=== PATIENT | male | born 1970 | race Caucasian/White ===

== ENCOUNTER 2023-05-07 17:14 | Observation (INO) ==
[2023-05-07 18:11] LABS: Hemoglobin 14.5 g/dl (14.0-18.0); Mean Corpuscular Hemoglobin 29.1 pg (25.0-34.0); Mean Corpuscular Volume 88.2 fL (80.0-100.0); Mean Platelet Volume 9.5 fL (9.4-12.4); Platelet Count 312 K/uL (130-400); RDW Coefficient of Variation 12.8 % (11.5-14.5); RDW Standard Deviation 41.5 fL (36.4-46.3); Red Blood Count 4.99 M/uL (4.70-6.10); White Blood Count 7.64 K/ul (4.8-10.8)
[2023-05-07 18:30] LABS: Albumin Globulin Ratio 1.6 (0.9-2); Albumin Level 4.5 gm/dl (3.4-5.0); BUN Creatinine Ratio 13.7 (10-20); Bilirubin,Total 0.6 mg/dl (0.2-1.0); C Reactive Protein 0.79 mg/dl (0-0.5); Calcium 9.6 mg/dl (8.6-10.3); Creatinine Clr Calc Pharmacy 106.6 ml/min; Est GFR (African American) 96.8 ml/min; Est GFR (Non-African American) 83.5 ml/min; Globulin 2.9 gm/dl (2.5-4.0); Potassium 4.4 mmol/L (3.5-5.1); Total Protein 7.4 gm/dl (6.0-8.3)
[2023-05-07 18:42] LABS: INR 0.9 (0.9-1.1); Partial Thromboplastin Ratio 0.8; Partial Thromboplastin Time 23.8 Seconds (21.0-31.0); Prothrombin Time 10.2 Seconds (9.0-12.0)
[2023-05-07 18:59] LABS: Troponin I High Sensitivity 58.8 pg/ml (0-20)
[2023-05-07] MEDS ORDERED: OPTIRAY 320 125ml IV ONE (19:27)
[2023-05-07 19:50] LABS: Lyme Ab IgG w/WB Rflx Negative (Negative); Lyme Ab IgM w/WB Rflx Negative (Negative)
--- NOTE | 2023-05-07 19:59 | CT Scan Report ---
Exam(s): CTA CHEST IV Amt: 118ml optiray 320 EXAM: CT Angiography Chest With Intravenous Contrast CLINICAL HISTORY: Reason for exam: +Trop, recent travel. TECHNIQUE: Axial computed tomographic angiography images of the chest with intravenous contrast. CTDI is 14.84 mGy and DLP is 1926.31 mGy-cm. Automated exposure control was utilized for the study. A dose lowering technique was utilized adhering to the principles of ALARA. MIP reconstructed images were created and reviewed. COMPARISON: None FINDINGS: Pulmonary arteries: Unremarkable. No pulmonary embolus identified. Aorta: No acute findings. No aortic aneurysm or dissection. Lungs: Unremarkable. No mass. No consolidation. Pleural space: Unremarkable. No significant effusion. No pneumothorax. Heart: Unremarkable. No cardiomegaly. No significant pericardial effusion. No evidence of RV dysfunction. Bones/joints: Mild degenerative changes of the spine. No acute fracture. No dislocation. Soft tissues: Unremarkable. Lymph nodes: Unremarkable. No enlarged lymph nodes. IMPRESSION: 1. No pulmonary embolus identified. 2. No aortic aneurysm or dissection. 3. No acute pulmonary parenchymal abnormality identified. Electronically signed by: Yari Ruffin M.D. 05/07/23 19:58 PM
--- NOTE | 2023-05-07 20:02 | CT Scan Report ---
Exam(s): CTA ABDOMEN + PELVIS With Contrast IV Amt: 118ml optiray 320 EXAM: CT Angiography Abdomen and Pelvis With Intravenous Contrast CLINICAL HISTORY: Reason for exam: blood in stool, elevated trop. TECHNIQUE: Axial computed tomographic angiography images of the abdomen and pelvis with intravenous contrast. CTDI is 27.6 mGy and DLP is 1926.31 mGy-cm. Automated exposure control was utilized for the study. A dose lowering technique was utilized adhering to the principles of ALARA. MIP reconstructed images were created and reviewed. CONTRAST: Patient received 118ml optiray 320 of IV contrast COMPARISON: CT abdomen/pelvis on 09/03/2016 FINDINGS: VASCULATURE: Aorta: No acute findings. No abdominal aortic aneurysm or dissection. Celiac trunk and mesenteric arteries: No acute findings. No occlusion or significant stenosis. Renal arteries: No acute findings. No occlusion or significant stenosis. Iliac arteries: No acute findings. No occlusion or significant stenosis. Lung bases: Unremarkable. No mass. No consolidation. ABDOMEN: Liver: Hepatic steatosis. Gallbladder and bile ducts: Unremarkable. No calcified stones. No ductal dilation. Pancreas: Unremarkable. No ductal dilation. No mass. Spleen: Unremarkable. No splenomegaly. Adrenals: Unremarkable. No mass. Kidneys and ureters: Small nonobstructing bilateral renal stones. No hydronephrosis or ureteral stone. Stomach and bowel: Diverticulosis without evidence of diverticulitis. Underdistended proximal sigmoid colon and descending colon limits evaluation. No small bowel obstruction. No active GI bleed. PELVIS: Appendix: Normal appendix. Bladder: Unremarkable. No mass. Reproductive: Unremarkable as visualized. ABDOMEN and PELVIS: Intraperitoneal space: Phleboliths in the pelvis. No significant fluid collection. No free air. Bones/joints: Mild degenerative changes of the spine. No acute fracture. No dislocation. Soft tissues: Small fat-containing umbilical hernia. Lymph nodes: Unremarkable. No enlarged lymph nodes. IMPRESSION: 1. No active GI bleed. 2. Small nonobstructing bilateral renal stones. No hydronephrosis or ureteral stone. Electronically signed by: Yari Ruffin M.D. 05/07/23 20:01 PM
--- NOTE | 2023-05-07 22:19 | Emergency Department Note ---
History of Present Illness General Chief complaint: Rectal Pain Stated complaint: RECTAL PAIN,BLOOD STOOL Time Seen by Provider: 05/07/23 17:50 History of Present Illness Maximum Pain Intensity: 2 This is a 52-year-old male presenting to the emergency department for evaluation of perirectal pain and blood in his stool. Patient has had symptoms off and on for 2 or 3 days. There is some pain with wiping, and red blood on the toilet paper and in the toilet. The patient does not endorse any significant abdominal pain. His last colonoscopy was last year, and was reportedly essentially normal. The patient did travel out of the country 2 months ago, but has not had symptoms until this past weekend. No recent antibiotic use. No diarrhea. He does not have a history of inflammatory bowel disease or surgical abdominal history. Patient does not typically take NSAIDs and is not on blood thinners. He rates his discomfort a 2/10. Home Medications Medication Instructions Recorded Confirmed Type ibuprofen 200 mg tablet 400 mg PO DAILY 05/07/23 05/07/23 History aspirin 81 mg chewable tablet 81 mg PO DAILY #30 tabs 05/08/23 Rx Allergies Allergy/AdvReac Type Severity Reaction Status Date / Time No Known Allergies Allergy Unverified 09/02/16 22:36 Past Med/Surg History Medical History No chronic diseases present Surgical History No significant past surgical history Family History Father Myocardial infarction Social History Smoking Status: Never smoker Hx Alcohol Use: No Hx Substance Use: No Preferred Language: Setswana Communication Ability: Effective Packer Operator Automatic Required: No Beliefs That Will Affect Care: None Current Living Situation: Family Other Information That Helps Us Care for You: No Feels Safe at Home: Yes Safety Concerns: Feels Safe At This Time Assistive Devices: None Review of Systems A total of 10 systems reviewed and were otherwise negative Physical Exam Vital Signs Vital Signs - 24 hr 05/07/23 22:30 05/07/23 22:12 05/07/23 23:00 Pulse Rate 72 Pulse Rate [Apical] 67 84 Respiratory Rate 18 16 Blood Pressure [Left Arm] 156/90 H 147/78 H Blood Pressure Mean [Left Arm] 112 101 Pulse Oximetry 96 97 Oxygen Delivery Method Room Air Room Air VITALS: Vitals are noted on the nurse's note and reviewed by myself. Vital signs stable. GENERAL: Well-developed, well-nourished, white male, who is in no acute distress and resting comfortably. Patient is cooperative with the examination. HEAD: Normocephalic atraumatic. NECK: Supple without nuchal rigidity. No lymphadenopathy. No thyromegaly. Cervical spine is nontender. HEART: Regular rate and rhythm without murmurs gallops or rubs. LUNGS: Clear to auscultation bilaterally without wheezes, rales or rhonchi. No retractions or accessory muscle use. ABDOMEN: Positive normal bowel sounds x 4. Soft, nontender, without masses or organomegaly. No guarding or rebound tenderness. : Perirectal space without obvious abscess, fistula, fissure, or hemorrhoid. MUSCULOSKELETAL: No muscle atrophy, erythema, or edema noted. Full range of motion in all extremities. No tenderness to palpation. Normal gait. Strength 5/5 throughout. NEURO: Patient was alert and oriented to person place and time. CN II through XII grossly intact. No focal neurological deficits. Deep tendon reflexes 2+ throughout. SKIN: The skin was without rashes, erythema, edema, or bruising. Capillary ref ill less than 2 seconds. Course Administered Medications Discontinued Medications Sodium Chloride (Nss 1000ml) 1,000 mls @ 100 mls/hr IV .Q10H AMANDA Stop: 05/08/23 21:04 Last Infusion: 05/08/23 09:35 Dose: 0 mls/hr Documented By: Admin: 05/08/23 01:34 Dose: 100 mls/hr Documented By: BROOKE Ioversol (Optiray 320 125ml) 118 ml IV ONCE ONE Stop: 05/07/23 19:28 Last Admin: 05/07/23 19:28 Dose: 118 ml Documented By: DOROTHY Methylcellulose (Methylcellulose Powder 454 Gm Jar) 1 gm PO DAILY AMANDA Stop: 06/07/23 09:14 Last Admin: 05/08/23 09:35 Dose: Not Given Documented By: AMANDEEP Medical Decision Making Differential Diagnosis Differential diagnosis includes, but is not limited to: Myocardial infarction, dysrhythmia, pericarditis, pneumothorax, aortic aneurysm/dissection, DVT/PE, anxiety, GERD, PUD, electrolyte imbalance, thyroid disorder, pneumonia, bronchitis, pancreatitis, and others Laboratory Data 05/07/23 17:50 05/07/23 17:50 Lab Results 05/07/23 05/07/23 05/07/23 Range/Units 17:50 17:50 17:50 WBC 7.64 (4.8-10.8) K/ul RBC 4.99 (4.70-6.10) M/uL Hgb 14.5 (14.0-18.0) g/dl Hct 44.0 (42.0-52.0) % MCV 88.2 (80.0-100.0) fL MCH 29.1 (25.0-34.0) pg MCHC 33.0 (32.0-36.0) g/dL RDW Std Deviation 41.5 (36.4-46.3) fL RDW Coeff of Bunny 12.8 (11.5-14.5) % Plt Count 312 (130-400) K/uL MPV 9.5 (9.4-12.4) fL ESR (0-20) mm/hr PT 10.2 (9.0-12.0) Seconds INR 0.9 (0.9-1.1) APTT 23.8 (21.0-31.0) Seconds PTT Ratio 0.8 Sodium 138 (136-145) mmol/L Potassium 4.4 (3.5-5.1) mmol/L Chloride 106 (98-107) mmol/L Carbon Dioxide 28 (21-32) mmol/L Anion Gap 4 (3-11) BUN 14 (6-23) mg/dl Creatinine 1.02 (0.6-1.4) mg/dl Est Cr Clr Drug Dosing 106.6 ml/min Est GFR ( Amer) 96.8 ml/min Est GFR (Non-Af Amer) 83.5 ml/min BUN/Creatinine Ratio 13.7 (10-20) Glucose 94 (70-99(Fasting)) mg/dl Calcium 9.6 (8.6-10.3) mg/dl Total Bilirubin 0.6 (0.2-1.0) mg/dl AST 25 (13-39) U/L ALT 40 (7-52) U/L Alkaline Phosphatase 80 (34-104) U/L Troponin I High Sens 58.8 H* (0-20) pg/ml C-Reactive Protein 0.79 H (0-0.5) mg/dl Total Protein 7.4 (6.0-8.3) gm/dl Albumin 4.5 (3.4-5.0) gm/dl Globulin 2.9 (2.5-4.0) gm/dl Albumin/Globulin Ratio 1.6 (0.9-2) Lyme Disease IgG Ab (Negative) Lyme Disease IgM Ab (Negative) SARS-CoV-2, RNA, NAAT (NEGATIVE) 05/07/23 05/07/23 05/07/23 Range/Units 17:50 17:50 19:30 WBC (4.8-10.8) K/ul RBC (4.70-6.10) M/uL Hgb (14.0-18.0) g/dl Hct (42.0-52.0) % MCV (80.0-100.0) fL MCH (25.0-34.0) pg MCHC (32.0-36.0) g/dL RDW Std Deviation (36.4-46.3) fL RDW Coeff of Bunny (11.5-14.5) % Plt Count (130-400) K/uL MPV (9.4-12.4) fL ESR 27 H (0-20) mm/hr PT (9.0-12.0) Seconds INR (0.9-1.1) APTT (21.0-31.0) Seconds PTT Ratio Sodium (136-145) mmol/L Potassium (3.5-5.1) mmol/L Chloride (98-107) mmol/L Carbon Dioxide (21-32) mmol/L Anion Gap (3-11) BUN (6-23) mg/dl Creatinine (0.6-1.4) mg/dl Est Cr Clr Drug Dosing ml/min Est GFR ( Amer) ml/min Est GFR (Non-Af Amer) ml/min BUN/Creatinine Ratio (10-20) Glucose (70-99(Fasting)) mg/dl Calcium (8.6-10.3) mg/dl Total Bilirubin (0.2-1.0) mg/dl AST (13-39) U/L ALT (7-52) U/L Alkaline Phosphatase (34-104) U/L Troponin I High Sens (0-20) pg/ml C-Reactive Protein (0-0.5) mg/dl Total Protein (6.0-8.3) gm/dl Albumin (3.4-5.0) gm/dl Globulin (2.5-4.0) gm/dl Albumin/Globulin Ratio (0.9-2) Lyme Disease IgG Ab Negative (Negative) Lyme Disease IgM Ab Negative (Negative) SARS-CoV-2, RNA, NAAT NEGATIVE (NEGATIVE) 05/07/23 Range/Units 20:30 WBC (4.8-10.8) K/ul RBC (4.70-6.10) M/uL Hgb (14.0-18.0) g/dl Hct (42.0-52.0) % MCV (80.0-100.0) fL MCH (25.0-34.0) pg MCHC (32.0-36.0) g/dL RDW Std Deviation (36.4-46.3) fL RDW Coeff of Bunny (11.5-14.5) % Plt Count (130-400) K/uL MPV (9.4-12.4) fL ESR (0-20) mm/hr PT (9.0-12.0) Seconds INR (0.9-1.1) APTT (21.0-31.0) Seconds PTT Ratio Sodium (136-145) mmol/L Potassium (3.5-5.1) mmol/L Chloride (98-107) mmol/L Carbon Dioxide (21-32) mmol/L Anion Gap (3-11) BUN (6-23) mg/dl Creatinine (0.6-1.4) mg/dl Est Cr Clr Drug Dosing ml/min Est GFR ( Amer) ml/min Est GFR (Non-Af Amer) ml/min BUN/Creatinine Ratio (10-20) Glucose (70-99(Fasting)) mg/dl Calcium (8.6-10.3) mg/dl Total Bilirubin (0.2-1.0) mg/dl AST (13-39) U/L ALT (7-52) U/L Alkaline Phosphatase (34-104) U/L Troponin I High Sens 55.3 H* (0-20) pg/ml C-Reactive Protein (0-0.5) mg/dl Total Protein (6.0-8.3) gm/dl Albumin (3.4-5.0) gm/dl Globulin (2.5-4.0) gm/dl Albumin/Globulin Ratio (0.9-2) Lyme Disease IgG Ab (Negative) Lyme Disease IgM Ab (Negative) SARS-CoV-2, RNA, NAAT (NEGATIVE) Imaging Data Radiologist's Impression: Abdomen/Pelvis CTA 05/07/23 19:14 Exam(s): CTA ABDOMEN + PELVIS With Contrast IV Amt: 118ml optiray 320 EXAM: CT Angiography Abdomen and Pelvis With Intravenous Contrast CLINICAL HISTORY: Reason for exam: blood in stool, elevated trop. TECHNIQUE: Axial computed tomographic angiography images of the abdomen and pelvis with intravenous contrast. CTDI is 27.6 mGy and DLP is 1926.31 mGy-cm. Automated exposure control was utilized for the study. A dose lowering technique was utilized adhering to the principles of ALARA. MIP reconstructed images were created and reviewed. CONTRAST: Patient received 118ml optiray 320 of IV contrast COMPARISON: CT abdomen/pelvis on 09/03/2016 FINDINGS: VASCULATURE: Aorta: No acute findings. No abdominal aortic aneurysm or dissection. Celiac trunk and mesenteric arteries: No acute findings. No occlusion or significant stenosis. Renal arteries: No acute findings. No occlusion or significant stenosis. Iliac arteries: No acute findings. No occlusion or significant stenosis. Lung bases: Unremarkable. No mass. No consolidation. ABDOMEN: Liver: Hepatic steatosis. Gallbladder and bile ducts: Unremarkable. No calcified stones. No ductal dilation. Pancreas: Unremarkable. No ductal dilation. No mass. Spleen: Unremarkable. No splenomegaly. Adrenals: Unremarkable. No mass. Kidneys and ureters: Small nonobstructing bilateral renal stones. No hydronephrosis or ureteral stone. Stomach and bowel: Diverticulosis without evidence of diverticulitis. Underdistended proximal sigmoid colon and descending colon limits evaluation. No small bowel obstruction. No active GI bleed. PELVIS: Appendix: Normal appendix. Bladder: Unremarkable. No mass. Reproductive: Unremarkable as visualized. ABDOMEN and PELVIS: Intraperitoneal space: Phleboliths in the pelvis. No significant fluid collection. No free air. Bones/joints: Mild degenerative changes of the spine. No acute fracture. No dislocation. Soft tissues: Small fat-containing umbilical hernia. Lymph nodes: Unremarkable. No enlarged lymph nodes. IMPRESSION: 1. No active GI bleed. 2. Small nonobstructing bilateral renal stones. No hydronephrosis or ureteral stone. Electronically signed by: Yari Ruffin M.D. 05/07/23 20:01 PM Chest CTA 05/07/23 19:14 Exam(s): CTA CHEST IV Amt: 118ml optiray 320 EXAM: CT Angiography Chest With Intravenous Contrast CLINICAL HISTORY: Reason for exam: +Trop, recent travel. TECHNIQUE: Axial computed tomographic angiography images of the chest with intravenous contrast. CTDI is 14.84 mGy and DLP is 1926.31 mGy-cm. Automated exposure control was utilized for the study. A dose lowering technique was utilized adhering to the principles of ALARA. MIP reconstructed images were created and reviewed. COMPARISON: None FINDINGS: Pulmonary arteries: Unremarkable. No pulmonary embolus identified. Aorta: No acute findings. No aortic aneurysm or dissection. Lungs: Unremarkable. No mass. No consolidation. Pleural space: Unremarkable. No significant effusion. No pneumothorax. Heart: Unremarkable. No cardiomegaly. No significant pericardial effusion. No evidence of RV dysfunction. Bones/joints: Mild degenerative changes of the spine. No acute fracture. No dislocation. Soft tissues: Unremarkable. Lymph nodes: Unremarkable. No enlarged lymph nodes. IMPRESSION: 1. No pulmonary embolus identified. 2. No aortic aneurysm or dissection. 3. No acute pulmonary parenchymal abnormality identified. Electronically signed by: Yari Ruffin M.D. 05/07/23 19:58 PM [facility] Narrative Physical exam and history were performed. Nursing notes, EMR, and Medication List were personally reviewed. No social concerns were identified as barriers to patients care. Patient appears to have rectal pain bringing him to the ER. He does have some blood in his stool. IV access was established and labs were obtained. Patient was hydrated and medicated as above. Patient blood work is as above and was reviewed. He does not have a significantly elevated white blood cell count, gross anemia, bandemia, or s ignificant electrolyte imbalance. Transaminases are not diagnostic. BUN and creatinine are preserved. INR is not diagnostic. Unexpectedly the patient does have an elevated troponin of 58. By history and evaluation I am not able to identify a cause of the troponin elevation. CT angiogram of the chest as well as CT angiogram of the belly was performed and reviewed by myself and radiology. These are also not diagnostic as far as giving an explanation for the elevated troponin. Repeat 2-hour troponin was also still elevated at 55. Case was discussed with the on-call [facility] parts room clerk, Dr. Sorto, and the team will follow the patient as an inpatient. Case was discussed with the o n-call [facility] hospitalist, who did agree to evaluate the patient here in the ER. Please see their dictation for further patient course, plan, disposition. The chart was completed utilizing [employer] Voice Recognition Software. Grammatical errors, random word insertions, pronoun errors, and incomplete sentences are an occasional consequence of this system due to software limitations, ambient noise, and hardware issues. Any formal questions or concerns about the content, text, or information contained within the body of this dictation should be directly addressed to the provider for clarification. . Impression & Plan Elevated troponin, Rectal pain, Rectal bleeding Discharge Plan Visit Data Chief Complaint: Rectal Pain Stated Complaint: RECTAL PAIN,BLOOD STOOL ED Provider: Gio De Los Santos ED Midlevel Provider: Tip Hoyt Discharge Problem: Elevated troponin, Rectal pain, Rectal bleeding Patient Disposition: Admitted As Inpatient Discharge Instructions Interventions: ED Discharge Assessment Last Done: 05/08/23 00:31
--- NOTE | 2023-05-07 23:53 | History & Physical Report ---
Date of Service May 07, 2023 Assessment & Plan (1) Rectal pain: Plan: 52-year-old male with past medical significant for prediabetes and dyslipidemia presents with rectal pain and some blood per rectum and found to have elevated troponin. Elevated troponin Patient asymptomatic EKG no acute findings Family significant for father had NH. Initial troponin 58 and repeat is 55 We will observe her in med telemetry We will follow serial cardiac enzymes and echocardiogram We will keep n.p.o. Consult cardiology for further recommendations in a.m. Blood per rectum Rectal pain No obvious hemorrhoids or anal fissures on visual inspection Labs okay Consult GI in a.m. Prediabetes We will follow HbA1c levels Dyslipidemia Not on medications We will follow fasting lipid profile. Obesity Needs counseling DVT prophylaxis SCDs Disposition Monitor in med telemetry Full code (2) Elevated troponin: History of Present Illness Chief Complaint: Blood per rectum and rectal pain Primary Care Provider: Robin Sharpe MD 52-year-old male with past medical significant for prediabetes, hyperlipidemia, obesity presents with some rectal pain and blood per rectum going on for last 2 days. Patient says couple of days ago it took 2 ibuprofens after mowing the grass. Last time he had blood was when he wiped after bowel movement today morning. Denies any fevers. No hematuria. Denies any chest pain or shortness of breath. No headache or dizziness. Ambulatory status okay. No chest pain or shortness of breath when while ambulating or climbing steps. No blurred visions. No earache or runny nose or sore throat or cough. No difficulty swallowing. Appetite is good. Currently resting comfortably and h emodynamically stable. Past medical history as mentioned above. Past surgical history excision of soft tissue of upper arm, colonoscopy, right ACL reconstruction, right meniscectomy ,vasectomy. Allergies Allergy/AdvReac Type Severity Reaction Status Date / Time No Known Allergies Allergy Unverified 09/02/16 22:36 Home Medications Medication Instructions Recorded Confirmed Type ibuprofen 200 mg tablet 400 mg PO DAILY 05/07/23 05/07/23 History Past Med/Surg History Medical History No chronic diseases present Surgical History No significant past surgical history Family History (Updated 05/07/23 @ 23:46 by Ehsan Gonzalez MD) Father Myocardial infarction Social History Smoking Status: Never smoker Feels Safe at Home: Yes Review of Systems Review of Systems: All systems reviewed & are unremarkable except as noted in Subjective Physical Exam Physical Exam: NEEDS EDITING General- adult Head- atraumatic Eyes- PERRL, ENT- oropharynx clear Neck- supple, no JVD, no adenopathy, Lungs- clear to auscultation and percussion Heart- regular rhythm; no murmur, no gallop, no rub appreciated Abdomen- normal bowel sounds, soft, nontender, no masses or hepatosplenomegaly Extremities- no pretibial edema, no erythema Neuro- alert, oriented x 3; PERRL, Non focal Rectal Exam: no external hemorrhoids or anal fissure seen. Skin- warm & dry Results & Data Results & Data Vital Signs (Past 12 Hours) Vital Signs Temp Pulse Pulse Resp BP BP Pulse Ox 05/07/23 23:00 84 16 147/78 H 97 05/07/23 22:12 72 05/07/23 22:30 67 18 156/90 H 96 05/07/23 21:14 73 18 134/98 97 05/07/23 20:37 77 20 145/93 H 96 05/07/23 19:00 77 16 167/90 H 97 05/07/23 18:25 76 05/07/23 19:38 88 16 170/87 H 98 05/07/23 18:14 71 18 148/86 H 96 05/07/23 18:13 96 05/07/23 17:25 37 C 78 16 168/110 H 99 O2 Del Method 05/07/23 23:00 Room Air 05/07/23 22:12 05/07/23 22:30 Room Air 05/07/23 21:14 Room Air 05/07/23 20:37 05/07/23 19:00 Room Air 05/07/23 18:25 05/07/23 19:38 Room Air 05/07/23 18:14 Room Air 05/07/23 18:13 Room Air 05/07/23 17:25 Room Air Diagnostic Findings Laboratory Results WBC 7.64 K/ul (4.8-10.8) 05/07/23 17:50 RBC 4.99 M/uL (4.70-6.10) 05/07/23 17:50 Hgb 14.5 g/dl (14.0-18.0) 05/07/23 17:50 Hct 44.0 % (42.0-52.0) 05/07/23 17:50 MCV 88.2 fL (80.0-100.0) 05/07/23 17:50 MCH 29.1 pg (25.0-34.0) 05/07/23 17:50 MCHC 33.0 g/dL (32.0-36.0) 05/07/23 17:50 RDW Std Deviation 41.5 fL (36.4-46.3) 05/07/23 17:50 RDW Coeff of Bunny 12.8 % (11.5-14.5) 05/07/23 17:50 Plt Count 312 K/uL (130-400) 05/07/23 17:50 MPV 9.5 fL (9.4-12.4) 05/07/23 17:50 ESR 27 mm/hr (0-20) H 05/07/23 17:50 PT 10.2 Seconds (9.0-12.0) 05/07/23 17:50 INR 0.9 (0.9-1.1) 05/07/23 17:50 APTT 23.8 Seconds (21.0-31.0) 05/07/23 17:50 PTT Ratio 0.8 05/07/23 17:50 Sodium 138 mmol/L (136-145) 05/07/23 17:50 Potassium 4.4 mmol/L (3.5-5.1) 05/07/23 17:50 Chloride 106 mmol/L (98-107) 05/07/23 17:50 Carbon Dioxide 28 mmol/L (21-32) 05/07/23 17:50 Anion Gap 4 (3-11) 05/07/23 17:50 BUN 14 mg/dl (6-23) 05/07/23 17:50 Creatinine 1.02 mg/dl (0.6-1.4) 05/07/23 17:50 Est Cr Clr Drug Dosing 106.6 ml/min 05/07/23 17:50 Est GFR ( Amer) 96.8 ml/min 05/07/23 17:50 Est GFR (Non-Af Amer) 83.5 ml/min 05/07/23 17:50 BUN/Creatinine Ratio 13.7 (10-20) 05/07/23 17:50 Glucose 94 mg/dl (70-99(Fasting)) 05/07/23 17:50 Calcium 9.6 mg/dl (8.6-10.3) 05/07/23 17:50 Total Bilirubin 0.6 mg/dl (0.2-1.0) 05/07/23 17:50 AST 25 U/L (13-39) 05/07/23 17:50 ALT 40 U/L (7-52) 05/07/23 17:50 Alkaline Phosphatase 80 U/L (34-104) 05/07/23 17:50 Troponin I High Sens 55.3 pg/ml (0-20) H* 05/07/23 20:30 C-Reactive Protein 0.79 mg/dl (0-0.5) H 05/07/23 17:50 Total Protein 7.4 gm/dl (6.0-8.3) 05/07/23 17:50 Albumin 4.5 gm/dl (3.4-5.0) 05/07/23 17:50 Globulin 2.9 gm/dl (2.5-4.0) 05/07/23 17:50 Albumin/Globulin Ratio 1.6 (0.9-2) 05/07/23 17:50 Lyme Disease IgG Ab Negative (Negative) 05/07/23 17:50 Lyme Disease IgM Ab Negative (Negative) 05/07/23 17:50 SARS-CoV-2, RNA, NAAT NEGATIVE (NEGATIVE) 05/07/23 19:30 Impressions Abdomen/Pelvis CTA 05/07/23 19:14 Exam(s): CTA ABDOMEN + PELVIS With Contrast IV Amt: 118ml optiray 320 EXAM: CT Angiography Abdomen and Pelvis With Intravenous Contrast CLINICAL HISTORY: Reason for exam: blood in stool, elevated trop. TECHNIQUE: Axial computed tomographic angiography images of the abdomen and pelvis with intravenous contrast. CTDI is 27.6 mGy and DLP is 1926.31 mGy-cm. Automated exposure control was utilized for the study. A dose lowering technique was utilized adhering to the principles of ALARA. MIP reconstructed images were created and reviewed. CONTRAST: Patient received 118ml optiray 320 of IV contrast COMPARISON: CT abdomen/pelvis on 09/03/2016 FINDINGS: VASCULATURE: Aorta: No acute findings. No abdominal aortic aneurysm or dissection. Celiac trunk and mesenteric arteries: No acute findings. No occlusion or significant stenosis. Renal arteries: No acute findings. No occlusion or significant stenosis. Iliac arteries: No acute findings. No occlusion or significant stenosis. Lung bases: Unremarkable. No mass. No consolidation. ABDOMEN: Liver: Hepatic steatosis. Gallbladder and bile ducts: Unremarkable. No calcified stones. No ductal dilation. Pancreas: Unremarkable. No ductal dilation. No mass. Spleen: Unremarkable. No splenomegaly. Adrenals: Unremarkable. No mass. Kidneys and ureters: Small nonobstructing bilateral renal stones. No hydronephrosis or ureteral stone. Stomach and bowel: Diverticulosis without evidence of diverticulitis. Underdistended proximal sigmoid colon and descending colon limits evaluation. No small bowel obstruction. No active GI bleed. PELVIS: Appendix: Normal appendix. Bladder: Unremarkable. No mass. Reproductive: Unremarkable as visualized. ABDOMEN and PELVIS: Intraperitoneal space: Phleboliths in the pelvis. No significant fluid collection. No free air. Bones/joints: Mild degenerative changes of the spine. No acute fracture. No dislocation. Soft tissues: Small fat-containing umbilical hernia. Lymph nodes: Unremarkable. No enlarged lymph nodes. IMPRESSION: 1. No active GI bleed. 2. Small nonobstructing bilateral renal stones. No hydronephrosis or ureteral stone. Electronically signed by: Yari Ruffin M.D. 05/07/23 20:01 PM Chest CTA 05/07/23 19:14 Exam(s): CTA CHEST IV Amt: 118ml optiray 320 EXAM: CT Angiography Chest With Intravenous Contrast CLINICAL HISTORY: Reason for exam: +Trop, recent travel. TECHNIQUE: Axial computed tomographic angiography images of the chest with intravenous contrast. CTDI is 14.84 mGy and DLP is 1926.31 mGy-cm. Automated exposure control was utilized for the study. A dose lowering technique was utilized adhering to the principles of ALARA. MIP reconstructed images were created and reviewed. COMPARISON: None FINDINGS: Pulmonary arteries: Unremarkable. No pulmonary embolus identified. Aorta: No acute findings. No aortic aneurysm or dissection. Lungs: Unremarkable. No mass. No consolidation. Pleural space: Unremarkable. No significant effusion. No pneumothorax. Heart: Unremarkable. No cardiomegaly. No significant pericardial effusion. No evidence of RV dysfunction. Bones/joints: Mild degenerative changes of the spine. No acute fracture. No dislocation. Soft tissues: Unremarkable. Lymph nodes: Unremarkable. No enlarged lymph nodes. IMPRESSION: 1. No pulmonary embolus identified. 2. No aortic aneurysm or dissection. 3. No acute pulmonary parenchymal abnormality identified. Electronically signed by: Yari Ruffin M.D. 05/07/23 19:58 PM ECG Additional Comments: ECG normal sinus rhythm with a rate of [address] changes seen. Code Status & VTE Plan VTE Prophylaxis Plan VTE Prophylaxis will be ordered: Yes
[2023-05-08] MEDS ORDERED: SODIUM CHLORIDE 0.9% 1000ML 1,000 ML IV SCH (01:05)
[2023-05-08] MEDS ORDERED: ONDANSETRON INJ 2 MG/ML 2 ML VIAL IV PRN (01:05)
[2023-05-08] MEDS ORDERED: ACETAMINOPHEN 325 MG TAB PO PRN (01:05)
[2023-05-08] MEDS ORDERED: NITROGLYCERIN SL 0.4 MG/TAB TAB SL PRN (01:05)
[2023-05-08 06:32] LABS: Basophils # (auto) 0.03 K/uL (0-0.2); Basophils % (auto) 0.4 %; Eosinophils # (auto) 0.13 K/uL (0-0.50); Eosinophils % (auto) 1.9 %; Hematocrit (blood only) 39.5 % (42.0-52.0); Immature Granulocytes # (auto) 0.03 K/uL (0.01-0.20); Immature Granulocytes % (auto) 0.4 %; Lymphocytes # (auto) 1.93 K/uL (1.2-3.4); Mean Corpuscular Hemoglobin 28.9 pg (25.0-34.0); Mean Corpuscular Hgb Conc 32.9 g/dL (32.0-36.0); Mean Corpuscular Volume 87.8 fL (80.0-100.0); Mean Platelet Volume 9.6 fL (9.4-12.4); Monocytes # (auto) 0.58 K/uL (0.11-0.59); Monocytes % (auto) 8.4 %; Neutrophils # (auto) 4.19 K/uL (1.40-6.50); Neutrophils % (auto) 60.9 %; Platelet Count 291 K/uL (130-400); RDW Standard Deviation 41.6 fL (36.4-46.3); White Blood Count 6.89 K/ul (4.8-10.8)
[2023-05-08 06:59] LABS: BUN Creatinine Ratio 13.4 (10-20); Calcium 8.8 mg/dl (8.6-10.3); Chol HDL Ratio 6.2 (0-5); Creatinine Clr Calc Pharmacy 110.8 ml/min; Est GFR (African American) 102.9 ml/min; Est GFR (Non-African American) 88.8 ml/min; Magnesium 2.1 mg/dl (1.7-2.4); Potassium 4.1 mmol/L (3.5-5.1)
[2023-05-08 07:10] LABS: Troponin I High Sensitivity 53.4 pg/ml (0-20)
[2023-05-08 07:26] LABS: Estimated Average Glucose 131 mg/dl; Hemoglobin A1C 6.2 % (4.5-5.6)
[2023-05-08] MEDS ORDERED: LIDOCAINE 2% JELLY 5 ML TUBE EXT PRN (08:44)
[2023-05-08] MEDS ORDERED: NITROGLYCERIN 2% 7.5 INCH, AQUAPHOR 67.5 GM, BARCODE IDENTIFIER 1 EACH EXT PRN (08:44)
--- NOTE | 2023-05-08 08:53 | Gastrointestinal Consultation ---
Date of Consultation May 08, 2023 Assessment & Plan (1) Rectal pain: (2) Rectal bleeding: (3) Fissure, anal: Pt is a 52 yo male seen with rectal pain and BRBPR symptoms, on exam today found to have bleeding anal fissure. He is hemodynamically stable wo anemia. CTA abd/pelvis normal. Last colonoscopy in 2021 w finding of benign colon polyp. - Sitz bath bid - Nitroglycerin 0.2% UT bid prn rectal fissure - Lidocaine 2% gel UT bid prn rectal pain - Avoid constipation/straining. May use stool softeners such as Miralax or Colace prn - If bleeding does not resolve, may consider outpt sigmoidscopy - Diet as tolerated. - GI to sign off; pls recall prn Supervising Physician Co-Signing Physician Notes I personally saw and evaluated the patient on 05/08/2023 with ROJAS Reyes and agree with her findings and plan of care. On rectal exam patient has an obvious anal fissure with small amount of blood. He had a colonoscopy 1 year ago with 1 polyp removed. hgb stable at 13. he is noticing small amounts of blood with wiping and rectal pain with sitting. We discussed about anal fissures and treatment. This is the likely source of his rectal pain and small bleeding. Recommendations as above including lidocaine gel, topical nitroglycerin or topical nifedipine, and sitz bath. Recommend a daily miralax to avoid constipation and straining. Fiber supplement. If fissure fails to heal would need to see colorectal surgery as outpatient. GI will sign off but please call back with questions. Susy Gann, DO Gastroenterology and Hepatology History of Present Illness Reason for Consultation: Rectal pain, bleeding Requesting Physician: Dr. Ga Gaston Attending Physician: Dr. Susy Gann History of Present Illness Pt is a 52 yo male w PMHx of prediabetes, HLD, obesity who was referred to ED w symptoms of rectal pain and BRBPR x 2 days. He has associated groin pain and rectal pain when sitting. Denies fever, chills, abd pain, n/v. Notices the BRPBR when he wipes after BM. No changes in bowel habits. CTA abd/pelvis unremarkable. Blood ct normal wo elevation of BUN. VS stable as well. He was incidentally found to have elevated Troponin, thus kept overnight. Last BM this BM w some BRBPR Allergies Allergy/AdvReac Type Severity Reaction Status Date / Time No Known Allergies Allergy Unverified 09/02/16 22:36 Home Medications Medication Instructions Recorded Confirmed Type ibuprofen 200 mg tablet 400 mg PO DAILY 05/07/23 05/07/23 History Patient History Medical History No chronic diseases present Surgical History No significant past surgical history Family History Father Myocardial infarction Social History Smoking Status: Never smoker Hx Alcohol Use: No Hx Substance Use: No Preferred Language: Bangladeshi Communication Ability: Effective Product Safety Tester Required: No Beliefs That Will Affect Care: None Current Living Situation: Family Other Information That Helps Us Care for You: No Feels Safe at Home: Yes Safety Concerns: Feels Safe At This Time Assistive Devices: Glasses Review of Systems Review of Systems: All systems reviewed & are unremarkable except as noted in HPI & below Physical Exam Constitutional: WD/WN, vitals as above well groomed, cooperative and comfortable Eyes: PERRL, conjunctivae normal, anicteric sclerae ENMT: external ear and nose normal, oropharynx normal Respiratory: normal respiratory effort; no respiratory distress Gastrointestinal (Abdomen): Rectal Exam: + rectal fissure (oozing blood from fissure noted ); no rectal mass Skin: no rashes, warm and dry no jaundice Psychiatric: A+Ox3, euthymic affect Lymphatic: no lymphedema Results & Data Vital Signs (Past 12 Hours) Vital Signs Temp Pulse Pulse Resp BP BP Pulse Ox 05/08/23 07:24 60 05/08/23 06:04 36.7 C 69 18 127/78 95 05/08/23 03:19 36.7 C 70 18 127/78 96 05/08/23 01:05 36.8 C 94 H 20 143/90 H 96 05/08/23 01:00 95 H 05/08/23 00:31 97 H 16 153/81 H 98 05/08/23 00:15 77 16 158/86 H 97 05/07/23 23:00 84 16 147/78 H 97 05/07/23 22:12 72 05/07/23 22:30 67 18 156/90 H 96 05/07/23 21:14 73 18 134/98 97 O2 Del Method 05/08/23 07:24 05/08/23 06:04 Room Air 05/08/23 03:19 Room Air 05/08/23 01:05 Room Air 05/08/23 01:00 05/08/23 00:31 Room Air 05/08/23 00:15 Room Air 05/07/23 23:00 Room Air 05/07/23 22:12 05/07/23 22:30 Room Air 05/07/23 21:14 Room Air
[2023-05-08] MEDS ORDERED: METHYLCELLULOSE POWDER 454 GM JAR PO SCH (09:15)
--- NOTE | 2023-05-08 12:02 | Hospitalist Progress Note ---
Date of Service May 08, 2023 Assessment & Plan (1) Rectal pain: Plan: 52-year-old male with past medical significant for prediabetes and dyslipidemia presents with rectal pain and some blood per rectum and found to have elevated troponin. Elevated troponin-incidental finding and serial troponin did not show any increasing levels Denies any cardiac symptoms before presentation EKG no acute findings Family significant for father had [place]. Echo of the heart showed EF of 55 to 60%, mild concentric LVH, LV wall motion is normal, grade 1 diastolic dysfunction and no significant valve pathology Awaiting cardiology evaluation before discharging home this afternoon Blood per rectum-likely secondary to bleeding from anal fissure Rectal pain No obvious hemorrhoids or anal fissures on visual inspection No more blood per rectum Appreciate GI input and recommendation Prediabetes We will follow HbA1c levels Hemoglobin A1c is 6.2 Dyslipidemia Not on medications We will follow fasting lipid profile. Cholesterol 210, LDL 160, HDL 34 Advised to do more exercise Obesity Needs counseling DVT prophylaxis SCDs Disposition Monitor in med telemetry Full code Likely discharge this afternoon (2) Elevated troponin: Admission and Anticipated Discharge Date Admission Date: May 07, 2023 Subjective 05/08/2023 The patient was seen and examined in medical telemetry unit He has been feeling much better and denies any chest pain and/or exertional chest pain before coming to the emergency room He has a strong family history of heart disease but never has had any chest pain and a cardiac related symptoms before His bleeding per rectum is secondary to anal fissure and has stopped Will be discharged home this afternoon Review of Systems Review of Systems: All systems reviewed and are unremarkable except as noted below Physical Exam Physical Exam: Lying in bed comfortably Constitutional: well developed, well nourished and + obese; not ill appearing Eyes: PERRL, conjunctivae normal, anicteric sclerae ENMT: external ear and nose normal, oropharynx normal Neck: trachea midline, no thyromegaly Respiratory: no respiratory distress Auscultation: lungs clear to a uscultation bilaterally Cardiovascular: Rate/Rhythm: regular rate and regular rhythm; not tachycardic Heart Sounds: normal S1 and normal S2; no murmur Extremities: no edema Gastrointestinal (Abdomen): Inspection/Auscultation: normal bowel sounds; abdomen not distended Percussion/Palpation: abdomen soft; abdomen nontender Musculoskeletal: No acute arthritis involving any joint Neurologic: normal touch/pain/proprioception and moves all extremities; no focal motor deficits Psychiatric: A+Ox3, euthymic affect Lymphatic: no cervical or axillary lymphadenopathy Results & Data Results & Data Vital Signs (Past 12 Hours) Vital Signs Temp Pulse Pulse Resp BP BP Pulse Ox 05/08/23 11:13 36.7 C 90 18 130/80 95 05/08/23 07:24 60 05/08/23 06:04 36.7 C 69 18 127/78 95 05/08/23 03:19 36.7 C 70 18 127/78 96 05/08/23 01:05 36.8 C 94 H 20 143/90 H 96 05/08/23 01:00 95 H 05/08/23 00:31 97 H 16 153/81 H 98 05/08/23 00:15 77 16 158/86 H 97 O2 Del Method 05/08/23 11:13 Room Air 05/08/23 07:24 05/08/23 06:04 Room Air 05/08/23 03:19 Room Air 05/08/23 01:05 Room Air 05/08/23 01:00 05/08/23 00:31 Room Air 05/08/23 00:15 Room Air Laboratory Results Short CBC 05/07/23 05/08/23 Range/Units 17:50 05:36 WBC 7.64 6.89 (4.8-10.8) K/ul Hgb 14.5 13.0 L (14.0-18.0) g/dl Hct 44.0 39.5 L (42.0-52.0) % Plt Count 312 291 (130-400) K/uL [facility] 05/07/23 05/08/23 17:50 05:36 Sodium 138 140 Potassium 4.4 4.1 Chloride 106 107 Carbon Dioxide 28 28 BUN 14 13 Creatinine 1.02 0.97 Glucose 94 98 Calcium 9.6 8.8 Liver Function 05/07/23 Range/Units 17:50 Total Bilirubin 0.6 (0.2-1.0) mg/dl AST 25 (13-39) U/L ALT 40 (7-52) U/L Alkaline Phosphatase 80 (34-104) U/L Albumin 4.5 (3.4-5.0) gm/dl Medications Administered Current Inpatient Medications Acetaminophen (Acetaminophen 325 Mg Tab) 650 mg PO Q4H PRN PRN Reason: Pain or Fever Stop: 06/07/23 01:04 Nitroglycerin 7.5 inch/Emollient Ointment 67.5 gm/BARCODE IDENTIFIER 1 each 0 inch EXT BID PRN PRN Reason: fissure Stop: 06/07/23 08:59 Lidocaine HCl (Lidocaine 2% Jelly 5 Ml Tube) 2 ml EXT BID PRN PRN Reason: rectal pain Stop: 06/07/23 08:59 Methylcellulose (Methylcellulose Powder 454 Gm Jar) 1 gm PO DAILY AMANDA Stop: 06/07/23 09:14 Last Admin: 05/08/23 09:35 Dose: Not Given Nitroglycerin (Nitroglycerin Sl 0.4 Mg/Tab Tab) 0.4 mg SL Q5M PRN PRN Reason: Chest Pain Stop: 06/07/23 01:04 Ondansetron HCl (Ondansetron Inj 2 Mg/Ml 2 Ml Vial) 4 mg IV Q6H PRN PRN Reason: Nausea Stop: 06/07/23 01:04
--- NOTE | 2023-05-08 13:08 | Cardiology Consultation ---
Date of Consultation May 08, 2023 Assessment & Plan (1) Fissure, anal: (2) Rectal bleeding: (3) Dyslipidemia, goal LDL below 100: (4) Troponin I above reference range: Plan Elevated high sensitivity troponin I concentration in the absence of an acute coronary syndrome. Patient asymptomatic. EKG without acute change. Resting echocardiography with preserved LV systolic function without wall motion abnormality, without significant valvular pathology. Personal review of the CTA of the chest notable for coronary artery atherosclerosis. Risk factors: Family history. Dyslipidemia. Prediabetes. Inactivity. Obesity. 1. Stress echocardiography 2. Aggressive risk factor and lifestyle modification. 3. Recommend moderate intensity statin therapy. 4. Recommend aspirin 81 mg/day when safe from a GI standpoint. 5. Recommend weight loss through dietary changes and initiation of a structured exercise regimen post stress testing. Supervising Physician Co-Signing Physician Notes Patient seen examined at the bedside. Presented to the emergency department with rectal bleeding. Diagnosed with an anal fissure. Hemoglobin within normal limits. Troponin drawn and found to be minimally elevated. Denies any chest discomfort or unusual shortness of breath. Preliminary review of bedside echocardiogram demonstrates preserved LV systolic function and normal wall motion. CTA of the chest performed demonstrating mild coronary calcifications, no evidence of pulmonary embolus. PE: VSS. Gen: NAD, AAO x3. Heart: Regular rhythm, normal S1S2. No murmur. Lung: clear B/L, no rales, rhonchi or wheeze. Ext: No edema. A/P: Agree with above PA-C history, physical exam, assessment and plan. Proceed with exercise stress echo for further restratification given mildly elevated troponin coronary calcifications on CT. Recommend addition of statin therapy. He may begin taking low-dose aspirin when rectal bleeding issues have resolved. Further recommendations pending result of stress testing. Addendum: Exercise stress echo negative for inducible ischemia at adequate workload. Continue statin therapy. Add low-dose aspirin when rectal bleeding issues have resolved. Therapeutic lifestyle changes recommended including weight loss, dietary modifications, and participation in regular aerobic exercise program as tolerated. History of Present Illness Reason for Consultation: Elevated troponin Requesting Physician: Carlos Attending Physician: Alek History of Present Illness Mr. Ken Mike is a very pleasant 52-year-old male who presented to the [facility] ER on May 07, 2023 for evaluation of bright red blood per rectum. Evaluation revealed a bleeding anal fissure. Hemoglobin on presentation was 14.5 g/dL then 13.0 g/dL today. CTA of the abdomen and pelvis showed no active GI bleed. Incidental findings on the CT included small nonobstructing bilateral renal stones without hydronephrosis or ureteral stone, hepatic steatosis, and diverticulosis without diverticulitis. High-sensitivity troponin I obtained, mildly elevated at 58.8, 55.3, 53.4, and 37.7 pg/mL. EKG on presentation revealed normal sinus rhythm at 82 bpm. QTc 448 ms. EKG obtained shortly after midnight revealed normal sinus rhythm at 85 bpm with a possible inferior infarct A third EKG obtained this (05/08/2023) morning at 06:09:46 revealed normal sinus rhythm at 70 bpm. Resting echocardiography showed normal LV size and systolic function, ejection fraction 55 to 60%. No segmental left ventricular wall motion abnormalities observed. Mild concentric LVH was noted along with grade 1 diastolic dysfunction. No significant valve pathology. 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 Notes not being in great shape though is without chest pain or shortness of breath. Notes recently mowing the grass without significant difficulty other than some improving generalized soreness in the groin area "like I was sitting for 50 hours." Notes taking a couple of ibuprofen Sunday or Sunday night with benefit. Past Medical and Surgical History: Dyslipidemia Prediabetes Obesity Right ACL reconstruction Removal of a lipoma from the right shoulder Family History: Father with an OH at 60. Mother passed in November 2019, probable COVID, history of "blood cancer."2 older brothers without cardiac history. Social History: Non-smoker. No alcohol. No illegal drug use. Employment: Works from home, middle school technology teacher. . 3 children without cardiac issues. Complete Review of Systems: Constitutional: No change in weight. No fevers, sweats, or chills. HEENT: Glasses. Dental work a couple of months ago. Pulmonary: No history of pulmonary embolism, asthma, or COPD. Cardiac: No history of CAD, OH, CHF, arrhythmia, rheumatic fever, or scarlet fever. GI/Abd: See above. Colonoscopy on June 26, 2022 revealed a 3 mm polyp in the sigmoid colon that was removed with a cold snare, resected, and retrieved with repeat colonoscopy due in May 2027. Denies liver problems Denies kidney problems. Denies pancrease issues. Vascular: No claudication or aneurysm. Hematologic: No coagulation disorder or abnormal bleeding. Musculoskeletal: Improving "generalized soreness in the groin area." Extremities: + peripheral edema while in [facility]. Skin: No rash. No tick bites. Neurologic: No history of seizure. No history of TIA or CVA. Endocrine: + Prediabetic. No thyroid problems (thyroid issues in brother) Complete Review of Systems is as stated above, negative, or noncontributory. Allergies Allergy/AdvReac Type Severity Reaction Status Date / Time No Known Allergies Allergy Unverified 09/02/16 22:36 Home Medications Medication Instructions Recorded Confirmed Type ibuprofen 200 mg tablet 400 mg PO DAILY 05/07/23 05/07/23 History Patient History Medical History No chronic diseases present Surgical History No significant past surgical history Family History Father Myocardial infarction Social History Smoking Status: Never smoker Hx Alcohol Use: No Hx Substance Use: No Preferred Language: Greenlandic Communication Ability: Effective Binding Cutter Required: No Beliefs That Will Affect Care: None Current Living Situation: Family Other Information That Helps Us Care for You: No Feels Safe at Home: Yes Safety Concerns: Feels Safe At This Time Assistive Devices: None Review of Systems Review of Systems: All systems reviewed & are unremarkable except as noted in Subjective Physical Exam Physical Exam: General: A&Ox3. NAD. Elevated BMI HENT: Normocephalic. Atraumatic. Eyes: PER. Conjunctiva pink, sclera clear. Neck: No carotid bruits. No JVD. Heart: RRR. No murmur. Lungs: Clear to auscultation. Abdomen: +BS. Extremities: No clubbing, cyanosis, or edema. Limited neurological examination is without focal deficits. Pulses: radial=2/4, posterior tibial=2/4. Results & Data Vital Signs (Past 12 Hours) Vital Signs Temp Pulse Pulse Resp BP Pulse Ox O2 Del Method 05/08/23 11:13 36.7 C 90 18 130/80 95 Room Air 05/08/23 07:24 60 05/08/23 06:04 36.7 C 69 18 127/78 95 Room Air 05/08/23 03:19 36.7 C 70 18 127/78 96 Room Air Laboratory Results Cardiac Enzymes 05/07/23 05/07/23 05/08/23 Range/Units 17:50 20:30 05:36 AST 25 (13-39) U/L Troponin I High Sens 58.8 H* 55.3 H* 53.4 H* (0-20) pg/ml 05/08/23 Range/Units 11:20 AST (13-39) U/L Troponin I High Sens 37.7 H D (0-20) pg/ml Coagulation 05/07/23 Range/Units 17:50 PT 10.2 (9.0-12.0) Seconds APTT 23.8 (21.0-31.0) Seconds Lipids 05/08/23 Range/Units 05:36 Triglycerides 80 (0-150) mg/dl Cholesterol 210 H (0-200) mg/dl HDL Cholesterol 34 mg/dl Cholesterol/HDL Ratio 6.2 H (0-5) CBC 05/07/23 05/08/23 Range/Units 17:50 05:36 WBC 7.64 6.89 (4.8-10.8) K/ul RBC 4.99 4.50 L (4.70-6.10) M/uL Hgb 14.5 13.0 L (14.0-18.0) g/dl Hct 44.0 39.5 L (42.0-52.0) % Plt Count 312 291 (130-400) K/uL Neut # (Auto) 4.19 (1.40-6.50) K/uL Lymph # (Auto) 1.93 (1.2-3.4) K/uL Tama # (Auto) 0.58 (0.11-0.59) K/uL Eos # (Auto) 0.13 (0-0.50) K/uL Baso # (Auto) 0.03 (0-0.2) K/uL Comprehensive Metabolic Panel 05/07/23 05/08/23 Range/Units 17:50 05:36 Sodium 138 140 (136-145) mmol/L Potassium 4.4 4.1 (3.5-5.1) mmol/L Chloride 106 107 (98-107) mmol/L Carbon Dioxide 28 28 (21-32) mmol/L BUN 14 13 (6-23) mg/dl Creatinine 1.02 0.97 (0.6-1.4) mg/dl Glucose 94 98 (70-99(Fasting)) mg/dl Calcium 9.6 8.8 (8.6-10.3) mg/dl AST 25 (13-39) U/L ALT 40 (7-52) U/L Alkaline Phosphatase 80 (34-104) U/L Total Protein 7.4 (6.0-8.3) gm/dl Albumin 4.5 (3.4-5.0) gm/dl Intake and Output 05/07/23 05/08/23 05/08/23 22:59 06:59 14:59 Intake Total 801.667 / 801.667 Output Total Balance 800.667 / 800.667 Intake: IV 801.667 / 801.667 Sodium Chloride 0.9% 1000ML 1, 801.667 / 801.667 000 ml @ 100 mls/hr IV .Q10H [facility] Rx#:[id number] Output: # Bowel Movements Other: Other Intake Source NPO Weight 112 kg 109.4 kg Weight Measurement Method Built in Bedscale Standing Scale Diagnostic Findings Cardiac Enzymes 05/07/23 05/07/23 05/08/23 Range/Units 17:50 20:30 05:36 AST 25 (13-39) U/L Troponin I High Sens 58.8 H* 55.3 H* 53.4 H* (0-20) pg/ml 05/08/23 Range/Units 11:20 AST (13-39) U/L Troponin I High Sens 37.7 H D (0-20) pg/ml Coagulation 05/07/23 Range/Units 17:50 PT 10.2 (9.0-12.0) Seconds APTT 23.8 (21.0-31.0) Seconds Lipids 07/11/23 Range/Units 05:36 Triglycerides 80 (0-150) mg/dl Cholesterol 210 H (0-200) mg/dl HDL Cholesterol 34 mg/dl Cholesterol/HDL Ratio 6.2 H (0-5) CBC 05/07/23 05/08/23 Range/Units 17:50 05:36 WBC 7.64 6.89 (4.8-10.8) K/ul RBC 4.99 4.50 L (4.70-6.10) M/uL Hgb 14.5 13.0 L (14.0-18.0) g/dl Hct 44.0 39.5 L (42.0-52.0) % Plt Count 312 291 (130-400) K/uL Neut # (Auto) 4.19 (1.40-6.50) K/uL Lymph # (Auto) 1.93 (1.2-3.4) K/uL Tama # (Auto) 0.58 (0.11-0.59) K/uL Eos # (Auto) 0.13 (0-0.50) K/uL Baso # (Auto) 0.03 (0-0.2) K/uL Comprehensive Metabolic Panel 05/07/23 05/08/23 Range/Units 17:50 05:36 Sodium 138 140 (136-145) mmol/L Potassium 4.4 4.1 (3.5-5.1) mmol/L Chloride 106 107 (98-107) mmol/L Carbon Dioxide 28 28 (21-32) mmol/L BUN 14 13 (6-23) mg/dl Creatinine 1.02 0.97 (0.6-1.4) mg/dl Glucose 94 98 (70-99(Fasting)) mg/dl Calcium 9.6 8.8 (8.6-10.3) mg/dl AST 25 (13-39) U/L ALT 40 (7-52) U/L Alkaline Phosphatase 80 (34-104) U/L Total Protein 7.4 (6.0-8.3) gm/dl Albumin 4.5 (3.4-5.0) gm/dl Intake and Output 05/08/23 05/08/23 05/08/23 06:59 14:59 22:59 Intake Total 801.667 / 801.667 Output Total Balance 800.667 / 800.667 Intake: IV 801.667 / 801.667 Sodium Chloride 0.9% 1000ML 1, 801.667 / 801.667 000 ml @ 100 mls/hr IV .Q10H [facility] Rx#:[id number] Output: # Bowel Movements Other: Other Intake Source NPO Weight 109.4 kg Weight Measurement Method Standing Scale
--- NOTE | 2023-05-08 16:54 | Discharge Summary ---
Date of Service May 08, 2023 Admission HPI Per Admitting Provider 52-year-old male with past medical significant for prediabetes, hyperlipidemia, obesity presents with some rectal pain and blood per rectum going on for last 2 days. Patient says couple of days ago it took 2 ibuprofens after mowing the grass. Last time he had blood was when he wiped after bowel movement today morning. Denies any fevers. No hematuria. Denies any chest pain or shortness of breath. No headache or dizziness. Ambulatory status okay. No chest pain or shortness of breath when while ambulating or climbing steps. No blurred visions. No earache or runny nose or sore throat or cough. No difficulty swallowing. Appetite is good. Currently resting comfortably and hemodynamically stable. Past medical history as mentioned above. Past surgical history excision of soft tissue of upper arm, colonoscopy, right ACL reconstruction, right meniscectomy ,vasectomy. Admission Exam Per Admitting Provider General- adult Head- atraumatic Eyes- PERRL, ENT- oropharynx clear Neck- supple, no JVD, no adenopathy, Lungs- clear to auscultation and percussion Heart- regular rhythm; no murmur, no gallop, no rub appreciated Abdomen- normal bowel sounds, soft, nontender, no masses or hepatosplenomegaly Extremities- no pretibial edema, no erythema Neuro- alert, oriented x 3; PERRL, Non focal Rectal Exam: no external hemorrhoids or anal fissure seen. Skin- warm & dry Principal Diagnosis Rectal bleeding, anal fissure, elevated troponin without any ACS, normal stress echo Discharge Exam Lying in bed comfortably Constitutional well developed, well nourished and + obese; not ill appearing Eyes PERRL, conjunctivae normal, anicteric sclerae ENMT external ear and nose normal, oropharynx normal Neck trachea midline, no thyromegaly Respiratory no respiratory distress Auscultation: lungs clear to auscultation bilaterally Cardiovascular Rate/Rhythm: regular rate and regular rhythm; not tachycardic Heart Sounds: normal S1 and normal S2; no murmur Extremities: no edema Gastrointestinal (Abdomen) Inspection/Auscultation: normal bowel sounds; abdomen not distended Percussion/Palpation: abdomen soft; abdomen nontender Neurologic normal touch/pain/proprioception and moves all extremities; no focal motor deficits Psychiatric A+Ox3, euthymic affect Lymphatic no cervical or axillary lymphadenopathy Discharge Data Allergies Allergy/AdvReac Type Severity Reaction Status Date / Time No Known Allergies Allergy Unverified 09/02/16 22:36 Consultations 05/07/23 22:06 ED Decision to Admit Stat 05/08/23 08:00 Consult Cardiology Routine Consult Gastroenterology Routine Ordered Studies 05/07/23 19:14 CT angio abdomen pelvis w con Stat CT angio chest PE protocol Stat Hospital Course (1) Rectal pain: 52-year-old male with past medical significant for prediabetes and dyslipidemia presents with rectal pain and some blood per rectum and found to have elevated troponin. Elevated troponin-incidental finding and serial troponin did not show any increasing levels Denies any cardiac symptoms before presentation EKG no acute findings Family significant for father had [place]. Echo of the heart showed EF of 55 to 60%, mild concentric LVH, LV wall motion is normal, grade 1 diastolic dysfunction and no significant valve pathology Awaiting cardiology evaluation before discharging home this afternoon Blood per rectum-likely secondary to bleeding from anal fissure Rectal pain No obvious hemorrhoids or anal fissures on visual inspection No more blood per rectum Appreciate GI input and recommendation Prediabetes We will follow HbA1c levels Hemoglobin A1c is 6.2 Dyslipidemia Not on medications We will follow fasting lipid profile. Cholesterol 210, LDL 160, HDL 34 Advised to do more exercise Obesity Needs counseling DVT prophylaxis SCDs Disposition Monitor in med telemetry Full code Likely discharge this afternoon (2) Elevated troponin: Total Time Total Time Spent Total Time Spent (In Minutes): 35 minutes Discharge Plan Discharge Items Patient Disposition: Home - Self-Care Reason For Visit: RECTAL PAIN Discharge Diagnosis: Rectal bleeding, anal fissure, elevated troponin without any ACS, normal stress echo Activity: Resume your previous activity Non-emergency contact: Primary Care Provider Call non-emergency contact if: you have any medication questions and your symptoms worsen Follow-up/Referrals: Douglas Coronado MD [Outside Practitioners] - (Date & Time 05/14/2023 3:20 PM Provider Douglas Coronado MD Department Family [facility] ) Diet: Heart Healthy Addtl Attending Provider Instructions: No change in your current medications except aspirin 81 mg daily, you can get aspirin [id number] Recommend weight loss through dietary changes and initiation of exercise plan Pending Studies at Discharge: No Stand-Alone Forms: My [facility], Smoking Cessation Medications and DC Order Prescriptions: New aspirin 81 mg tablet,chewable 81 mg PO DAILY Qty: 30 0RF Continued ibuprofen 200 mg Tablet 400 mg PO DAILY Discharge Orders: Discharge Order (Routine); Ordered 05/08/23 Ordered By: Ga Gaston Admission Data Admit Date/Time: 05/07/23 23:26 Attending Provider: Ga Gaston Admit Provider: Ehsan Gonzalez Primary Care Provider: Robin Sharpe Other Providers: Ehsan Gonzalez ; Cory Sorto ; Katherine Ray ; Yaya Smalls ; Raisa Cisneros ; Megan Sousa ; Imani Kaur ; Radha Hoyt ; Sonu Pires ; Nii Hernandez ; Lian Viera ; Flori Schwartz ; Jeb Miller ; Heather Nguyen ; Callie Lomas ; Khloe Ge ; Ai Russell ; Rosita Gould ; S Chacho shelton ; Lazaro Gurrola ; Susy Gann ; Manjula Cedeno Jr Other Interventions: Discharge Summary Assessment (RN) Last Done: 05/08/23 16:19
--- NOTE | 2023-05-08 17:50 | Electrocardiogram Report ---
Test Reason : Blood Pressure : / mmHG Vent. Rate : 082 BPM Atrial Rate : 082 BPM P-R Int : 166 ms QRS Dur : 084 ms QT Int : 384 ms P-R-T Axes : 071 041 030 degrees QTc Int : 448 ms Normal sinus rhythm Normal ECG No previous ECGs available Confirmed by Carloz Uribe ([id number]) on 05/08/2023 5:49:37 PM Referred By: Robin Sharpe Confirmed By:Hira Uribe
--- NOTE | 2023-05-08 17:52 | Electrocardiogram Report ---
Test Reason : Blood Pressure : / mmHG Vent. Rate : 085 BPM Atrial Rate : 085 BPM P-R Int : 172 ms QRS Dur : 086 ms QT Int : 376 ms P-R-T Axes : 068 022 027 degrees QTc Int : 447 ms Normal sinus rhythm Possible Inferior infarct , age undetermined Abnormal ECG When compared with ECG of 07-MAY-2023 19:07, (unconfirmed) Borderline criteria for Inferior infarct are now Present Confirmed by Carloz Urbie ([id number]) on 05/08/2023 5:52:23 PM Referred By: Robin Sharpe Confirmed By:Hira Uribe
--- NOTE | 2023-05-08 17:55 | Electrocardiogram Report ---
Test Reason : Blood Pressure : / mmHG Vent. Rate : 070 BPM Atrial Rate : 070 BPM P-R Int : 176 ms QRS Dur : 082 ms QT Int : 408 ms P-R-T Axes : 068 025 021 degrees QTc Int : 440 ms Normal sinus rhythm Normal ECG When compared with ECG of 08-MAY-2023 00:53, (unconfirmed) No significant change was found Confirmed by Carloz Uribe ([id number]) on 05/08/2023 5:55:37 PM Referred By: Robin Sharpe Confirmed By:Hira Uribe
== END 2023-05-08 16:40 | disposition home or self-care (01) ==
LOC: 2N 17:14 → ED 17:14 → 2N 05-08 00:31

== ENCOUNTER 2024-11-07 21:12 | Inpatient (IN) ==
[2024-11-07] MEDS: SODIUM CHLORIDE 0.9% 1,000 ML IV ONE (22:26)
--- NOTE | 2024-11-07 22:26 | Emergency Department Note ---
Impression & Plan Paresthesias with subjective weakness, Hypertension, Dizziness ED Provider Note CHIEF COMPLAINT: Tingling right side HISTORY OF PRESENT ILLNESS: This 54 year old male patient presents to the emergency department via private vehicle for evaluation of tingling on his right side from his head to his toes. Pt. states around 6:00pm, he developed dizziness. This lasted a short time but seemed to improve after supper. He states he felt okay until about 8:30 or 9:00 when the dizziness returned and at that time, he was noticing some tingling of the right side of his body, primarily in his right arm. He states he elected to come to the ED at that time and felt that his right side was heavy and he thought he may have been shuffling his right leg to the car. notes he seemed "off balance" but did not note specific weakness or shuffling gait. Pt. states he was feeling nauseated while on the way to the ED, but upon arrival to the front door, was able to ambulate in without difficulty and states his dizziness and lightheadedness had resolved. He states his right arm and leg feel "tight" and tingling, but denies weakness or difficulty with movement. Pt. reports no history of medical problems in the past, but states he was admitted for elevated troponin about a year and a half ago. Notes at that time, his BP and cholesterol were elevated, though medication management was deferred. He was encouraged to monitor these findings, but he never followed up with an outpatient PCP. Pt. uncertain what his normal BP runs, but feels that 150 systolic is high for him. He denies history of similar symptoms. No vision changes or difficulties with speech. No headache. No chest pain or dyspnea. No recent head injury, neck injury, or other abnormality. History provided by: Patient REVIEW OF SYSTEMS: A 10 system review of systems was performed with positives and pertinent negatives listed in the history of present illness. All other systems were reviewed and are negative. ALLERGIES: NKDA PHYSICAL EXAM: VITALS: Vitals are noted on the nurse's note and reviewed by myself. GENERAL: This is a 54 year old male, in no acute distress, nondiaphoretic, well- developed well-nourished. SKIN: The skin was without rashes, erythema, edema, or bruising. There is no tenting of the skin. Capillary refill less than 2 seconds. HEAD: Normocephalic atraumatic. EARS: External auditory canals clear, tympanic membranes pearly vaughan without erythema or effusion bilaterally. No hemotympanum. Negative dee sign EYES: Pupils equal round and reactive to light and accommodation. Conjunctivae without injection, sclerae without icterus. Extraocular movements intact. NOSE: Patent, turbinates without inflammation or discharge. No sinus tenderness. MOUTH: Mucous membranes moist. Tonsils are not enlarged. Pharynx without erythema or exudate. Uvula midline. Airway patent. Tongue does not deviate. NECK: Supple without nuchal rigidity. No lymphadenopathy. Cervical spine is nontender. No JVD. HEART: Regular rate and rhythm without murmurs gallops or rubs. LUNGS: Clear to auscultation bilaterally without wheezes, rales or rhonchi. No retractions or accessory muscle use. ABDOMEN: Positive bowel sounds x 4. Soft, nontender, without masses or organomegaly. Valiente sign negative. No guarding or rebound tenderness. MUSCULOSKELETAL: No muscle atrophy, erythema, or edema noted. Full range of motion without joint tenderness in all extremities. No tenderness to palpation. Normal gait. Strength 5/5 throughout. NEURO: Patient was alert and oriented to person place and time. Normal sensation to light and sharp touch. Deep tendon reflexes 2+ throughout. No focal neurological deficits. An order was placed for continuous director of cardiac cath lab. The monitor showed a normal sinus rhythm at a ventricular rate of 85 bpm, per my interpretation. EKG was reviewed by myself and found to be Normal Sinus Rhythm at a rate of 86 beats per minute and per my interpretation reveals no ST elevation or depression, No T-wave inversion. No significant change when compared to EKG completed on 05/08/2023. Imaging as interpreted by myself and the radiologist revealed moderate to severe focal stenosis of the proximal right posterior cerebral artery without thrombus and mild calcified plaque causing 20-25% stenosis of the proximal internal carotid arteries bilaterally, but no large vessel occlusion or ICH, with radiologist interpretation as above. I agree with the radiologist's findings as based upon my independent interpretation. EMERGENCY DEPARTMENT COURSE: The patient was seen and evaluated as above. Pt. presents to the ED today for paresthesias which developed on the right side. He initially had dizziness/lightheadedness at around 6pm, last known normal just prior to this. States the paresthesias developed between 8-9pm. On evaluation, patient had no focal neurologic deficits. Pt. was hypertensive throughout his stay. Case was discussed with the attending physician. Did consider stroke alert, however, by the time of ED evaluation, patient was out of the stroke window for TNK. Agreed to complete workup with labs, imaging (CT head, CTA head and neck), and will monitor BP, however allow for permissive hypertension given presentation. IV access obtained, labs drawn. Labs reviewed. No leukocytosis or anemia. No thrombocytopenia. Renal, hepatic function without significant abnormality. Troponin 5.6. INR 0.9. UA negative for blood or evidence of infection. CT head, CTA head and neck completed and reviewed by myself and radiologist as noted. CXR completed and negative for acute abnormality. Pt. reassessed. Remains hypertensive. He continues to complain of right sided paresthesias. Re-evaluation shows no new deficit. Did recommend inpatient treatment/additional evaluation and the patient was agreeable. I discussed the case with Dr. Gonzalez. He would like me to contact neurology to determine whether any additional interventions may be recommended. I discussed the case with Dr. Mendoza with [facility] neurology. He did review the case. Recommends further inpatient evaluation with MRI and advised they could initiate treatment with Plavix and Aspirin for 21 days. Neurology will follow-up with the patient tomorrow morning. Dr. Gonzalez was updated. He did agree to admit the patient. Please see hospitalist dictation regarding ongoing management and care of this patient. I attest that I have personally reviewed the patient medication list. I attest that I have reviewed the patient's blood pressure and it was found to be elevated. Ongoing management by hospitalist. GCS: 15 In the evaluation and treatment of this patient the following differential diagnoses were entertained: CVA, TIA, stroke-like symptoms, radiculopathy, Hypertensive emergency, hypertensive crisis, cardiovascular pathology, toxicologic, pheochromocytoma, electrolyte abnormality, renal disease, endorgan damage, as well as other pathologies. The chart was completed utilizing [employer] voice recognition software. Grammatical errors, random word insertions, pronoun errors, and incomplete sentences are an occasional consequence of this system due to software limitations, ambient noise, and hardware issues. Any formal questions or concerns about the content, text, or information contained within the body of this dictation should be directly addressed to the provider for clarification. Past Med/Surg History Problem List (Updated 11/08/24 @ 02:52 by Ehsan Gonzalez MD) Stroke-like symptoms Rectal bleeding (Acute) Elevated troponin (Acute) Rectal pain (Acute) No significant past surgical history No chronic diseases present Renal colic on right side (Acute) Medical History Troponin I above reference range Dyslipidemia, goal LDL below 100 Fissure, anal Family History Father Myocardial infarction Social History Smoking Status: Never smoker Hx Alcohol Use: No Hx Substance Use: No Preferred Language: Italian Communication Ability: Effective Environmental Health Safety Manager Required: No Beliefs That Will Affect Care: None Current Living Situation: Family Feels Safe at Home: Yes Assistive Devices: None Allergies Allergies Allergy/AdvReac Type Severity Reaction Status Date / Time No Known Allergies Allergy Unverified 09/02/16 22:36 Home Meds Home Medications Medication Instructions Recorded Confirmed No Known Home Medications 11/08/24 11/08/24 Results & Data (ED) Vital Signs Vital Signs - 24 hr 11/07/24 21:14 11/07/24 21:24 11/07/24 21:38 Temperature 36.9 C Temperature Source Oral Pulse Rate 91 H 85 85 Pulse Rate [Right Finger] Pulse Rate from SpO2 Sensor 83 Pulse Rhythm Regular Pulse Rhythm [Right Finger] Pulse Strength Normal Pulse Strength [Right Finger] Respiratory Rate 17 18 Respiratory Effort / Characteristics Non-Labored Spontaneous Respiratory Depth Normal Respiratory Pattern Regular Blood Pressure 181/100 H 186/123 H Blood Pressure [Right Arm] Blood Pressure Mean 127 156 Blood Pressure Mean [Right Arm] Blood Pressure Position Sitting Blood Pressure Position [Right Arm] Pulse Oximetry 97 97 Oxygen Delivery Method Room Air Oxygen Flow Rate Sepsis Recent Fever Within 48 Hours No Sepsis New/Unexplained Change in Mental Status N/A Sepsis Action Taken by Nursing No Action Required 11/07/24 22:00 11/07/24 23:03 11/07/24 23:03 Temperature Temperature Source Pulse Rate 88 94 H Pulse Rate [Right Finger] Pulse Rate from SpO2 Sensor 88 94 H Pulse Rhythm Pulse Rhythm [Right Finger] Pulse Strength Pulse Strength [Right Finger] Respiratory Rate 17 22 Respiratory Effort / Characteristics Respiratory Depth Respiratory Pattern Blood Pressure 190/107 H 172/114 H Blood Pressure [Right Arm] Blood Pressure Mean 143 137 Blood Pressure Mean [Right Arm] Blood Pressure Position Blood Pressure Position [Right Arm] Pulse Oximetry 98 96 Oxygen Delivery Method Room Air Oxygen Flow Rate 96 Sepsis Recent Fever Within 48 Hours Sepsis New/Unexplained Change in Mental Status Sepsis Action Taken by Nursing 11/07/24 23:04 11/08/24 00:00 11/08/24 00:30 Temperature Temperature Source Pulse Rate 90 90 Pulse Rate [Right Finger] 94 H Pulse Rate from SpO2 Sensor 90 90 Pulse Rhythm Pulse Rhythm [Right Finger] Regular Pulse Strength Pulse Strength [Right Finger] Normal Respiratory Rate 20 16 16 Respiratory Effort / Characteristics Non-Labored Spontaneous Respiratory Depth Normal Respiratory Pattern Regular Blood Pressure 202/108 H 219/121 H Blood Pressure [Right Arm] 172/114 H Blood Pressure Mean 139 153 Blood Pressure Mean [Right Arm] 133 Blood Pressure Position Blood Pressure Position [Right Arm] Lying Pulse Oximetry 96 97 96 Oxygen Delivery Method Room Air Oxygen Flow Rate Sepsis Recent Fever Within 48 Hours Sepsis New/Unexplained Change in Mental Status Sepsis Action Taken by Nursing 11/08/24 00:30 11/08/24 01:00 11/08/24 01:24 Temperature Temperature Source Pulse Rate 84 91 H 92 H Pulse Rate [Right Finger] Pulse Rate from SpO2 Sensor 91 H 92 H Pulse Rhythm Pulse Rhythm [Right Finger] Pulse Strength Pulse Strength [Right Finger] Respiratory Rate 22 22 20 Respiratory Effort / Characteristics Respiratory Depth Respiratory Pattern Blood Pressure 219/121 H 168/92 H 176/94 H Blood Pressure [Right Arm] Blood Pressure Mean 185 121 121 Blood Pressure Mean [Right Arm] Blood Pressure Position Blood Pressure Position [Right Arm] Pulse Oximetry 97 96 96 Oxygen Delivery Method Oxygen Flow Rate Sepsis Recent Fever Within 48 Hours Sepsis New/Unexplained Change in Mental Status Sepsis Action Taken by Nursing 11/08/24 01:30 Temperature Temperature Source Pulse Rate 95 H Pulse Rate [Right Finger] Pulse Rate from SpO2 Sensor Pulse Rhythm Pulse Rhythm [Right Finger] Pulse Strength Pulse Strength [Right Finger] Respiratory Rate Respiratory Effort / Characteristics Respiratory Depth Respiratory Pattern Blood Pressure Blood Pressure [Right Arm] Blood Pressure Mean Blood Pressure Mean [Right Arm] Blood Pressure Position Blood Pressure Position [Right Arm] Pulse Oximetry Oxygen Delivery Method Oxygen Flow Rate Sepsis Recent Fever Within 48 Hours Sepsis New/Unexplained Change in Mental Status Sepsis Action Taken by Nursing Laboratory Data 11/07/24 21:30 11/07/24 21:30 Lab Results 11/07/24 11/07/24 11/07/24 Range/Units 21:30 21:36 22:28 WBC 7.68 (4.8-10.8) K/ul RBC 5.06 (4.70-6.10) M/uL Hgb 14.5 (14.0-18.0) g/dl Hct 43.7 (42.0-52.0) % MCV 86.4 (80.0-100.0) fL MCH 28.7 (25.0-34.0) pg MCHC 33.2 (32.0-36.0) g/dL RDW Std Deviation 39.8 (36.4-46.3) fL RDW Coeff of Bunny 12.7 (11.5-14.5) % Plt Count 301 (130-400) K/uL MPV 9.4 (9.4-12.4) fL Immature Gran % (Auto) 0.3 % Neut % (Auto) 57.1 % Lymph % (Auto) 32.8 % Campbell % (Auto) 7.8 % Eos % (Auto) 1.6 % Baso % (Auto) 0.4 % Neut # (Auto) 4.39 (1.40-6.50) K/uL Lymph # (Auto) 2.52 (1.20-3.40) K/uL Campbell # (Auto) 0.60 H (0.11-0.59) K/uL Eos # (Auto) 0.12 (0.00-0.50) K/uL Baso # (Auto) 0.03 (0.00-0.20) K/uL Immature Gran # (Auto) 0.02 (0.01-0.20) K/uL PT 9.7 (9.0-12.0) Seconds INR 0.9 (0.9-1.1) APTT 23 (21-31) Seconds PTT Ratio 0.9 Sodium 143 (136-145) mmol/L Potassium 3.3 L (3.5-5.1) mmol/L Chloride 105 (98-107) mmol/L Carbon Dioxide 32 (21-32) mmol/L Anion Gap 6 (3-11) BUN 13 (6-23) mg/dl Creatinine 1.11 (0.6-1.4) mg/dl Est Cr Clr Drug Dosing 94.8 ml/min eGFR 78.42 BUN/Creatinine Ratio 11.7 (10-20) Glucose 118 H (70-99(Fasting)) mg/dl Calcium 9.1 (8.6-10.3) mg/dl Magnesium 2.2 (1.7-2.4) mg/dl Total Bilirubin 0.6 (0.2-1.0) mg/dl AST 22 (13-39) U/L ALT 36 (7-52) U/L Alkaline Phosphatase 75 (34-104) U/L Troponin I High Sens 5.6 (0-20) pg/ml Total Protein 7.1 (6.0-8.3) gm/dl Albumin 4.5 (3.4-5.0) gm/dl Globulin 2.6 (2.5-4.0) gm/dl Albumin/Globulin Ratio 1.7 (0.9-2) Urine Color Yellow Urine Appearance Clear (Clear) Urine pH 7.0 (4.5-7.5) Ur Specific Diana 1.014 (1.000-1.030) Urine Protein Negative (Negative) Urine Glucose (UA) Negative (Negative) Urine Ketones Negative (Negative) Urine Blood Negative (Negative) Urine Nitrite Negative (Negative) Urine Bilirubin Negative (Negative) Urine Urobilinogen Negative (Negative) Ur Leukocyte Esterase Negative (Negative) Blood Type Antibody Screen 11/07/24 Range/Units 22:49 WBC (4.8-10.8) K/ul RBC (4.70-6.10) M/uL Hgb (14.0-18.0) g/dl Hct (42.0-52.0) % MCV (80.0-100.0) fL MCH (25.0-34.0) pg MCHC (32.0-36.0) g/dL RDW Std Deviation (36.4-46.3) fL RDW Coeff of Bunny (11.5-14.5) % Plt Count (130-400) K/uL MPV (9.4-12.4) fL Immature Gran % (Auto) % Neut % (Auto) % Lymph % (Auto) % Campbell % (Auto) % Eos % (Auto) % Baso % (Auto) % Neut # (Auto) (1.40-6.50) K/uL Lymph # (Auto) (1.20-3.40) K/uL Campbell # (Auto) (0.11-0.59) K/uL Eos # (Auto) (0.00-0.50) K/uL Baso # (Auto) (0.00-0.20) K/uL Immature Gran # (Auto) (0.01-0.20) K/uL PT (9.0-12.0) Seconds INR (0.9-1.1) APTT (21-31) Seconds PTT Ratio Sodium (136-145) mmol/L Potassium (3.5-5.1) mmol/L Chloride (98-107) mmol/L Carbon Dioxide (21-32) mmol/L Anion Gap (3-11) BUN (6-23) mg/dl Creatinine (0.6-1.4) mg/dl Est Cr Clr Drug Dosing ml/min eGFR BUN/Creatinine Ratio (10-20) Glucose (70-99(Fasting)) mg/dl Calcium (8.6-10.3) mg/dl Magnesium (1.7-2.4) mg/dl Total Bilirubin (0.2-1.0) mg/dl AST (13-39) U/L ALT (7-52) U/L Alkaline Phosphatase (34-104) U/L Troponin I High Sens (0-20) pg/ml Total Protein (6.0-8.3) gm/dl Albumin (3.4-5.0) gm/dl Globulin (2.5-4.0) gm/dl Albumin/Globulin Ratio (0.9-2) Urine Color Urine Appearance (Clear) Urine pH (4.5-7.5) Ur Specific Diana (1.000-1.030) Urine Protein (Negative) Urine Glucose (UA) (Negative) Urine Ketones (Negative) Urine Blood (Negative) Urine Nitrite (Negative) Urine Bilirubin (Negative) Urine Urobilinogen (Negative) Ur Leukocyte Esterase (Negative) Blood Type A Positive Antibody Screen NEGATIVE Administered Medications Discontinued Medications Aspirin (Aspirin Chew 324 Mg) 324 mg PO NOW STA Stop: 11/08/24 02:00 Last Admin: 11/08/24 02:34 Dose: 324 mg Documented By: LYNN Clopidogrel Bisulfate (Clopidogrel Bisulfate 300 Mg Tab) 300 mg PO NOW STA Stop: 11/08/24 02:17 Last Admin: 11/08/24 02:34 Dose: 300 mg Documented By: LYNN Sodium Chloride (Nss) 1,000 mls @ 999 mls/hr IV .Q1H1M ONE Stop: 11/07/24 23:14 Last Infusion: 11/08/24 01:37 Dose: Infused Documented By: Admin: 11/07/24 22:26 Dose: 999 mls/hr Documented By: LYNN Ioversol (Optiray 320 125ml) 119 ml IV ONCE ONE Stop: 11/07/24 22:54 Last Admin: 11/07/24 22:53 Dose: 119 ml Documented By: CAREY Imaging Data Radiologist's Impression: Chest X-Ray 11/07/24 22:08 Exam(s): XR CXR 1 VIEW EXAM: XR Chest, 1 View CLINICAL HISTORY: Reason for exam: neuro deficit, acute stroke suspected. TECHNIQUE: Frontal view of the chest. COMPARISON: No relevant prior studies available. FINDINGS: Lungs: Unremarkable. No consolidation. Pleural space: Unremarkable. No pleural effusion or pneumothorax. Heart: Unremarkable. No cardiomegaly or pulmonary vascular congestion. Bones/joints: No acute fracture. No dislocation. IMPRESSION: No evidence of acute cardiopulmonary disease. Electronically signed by: Kevyn Reyes M.D. 11/08/24 00:[address] 11/07/24 22:08 CR Exam(s): CT HEAD Without Contrast EXAM: CT Head Without Intravenous Contrast CLINICAL HISTORY: Reason for exam: neuro deficit, acute stroke suspected. TECHNIQUE: Axial computed tomography images of the head/brain without intravenous contrast. CTDI is 36.18 mGy and DLP is 624.41 mGy-cm. Automated exposure control was utilized for the study. A dose lowering technique was utilized adhering to the principles of ALARA. COMPARISON: No relevant prior studies available. FINDINGS: Brain: Mild periventricular and deep and better low densities consistent with chronic small ulcer disease and/or senescent changes. The brain is otherwise unremarkable. No acute large vessel infarct or intracranial hemorrhage is seen. Ventricles: Unremarkable. No ventriculomegaly. Bones/joints: Unremarkable. No acute fracture. Soft tissues: Unremarkable. Sinuses: Unremarkable as visualized. No acute sinusitis. Mastoid air cells: Unremarkable as visualized. No mastoid effusion. IMPRESSION: Mild periventricular and deep and better low densities consistent with chronic small ulcer disease and/or senescent changes. The brain is otherwise unremarkable. No acute large vessel infarct or intracranial hemorrhage is seen. Communications: Call Doctor Stroke Electronically signed by: Dain Elizabeth MD 11/07/24 23:51 PM Head CTA 11/07/24 22:08 CR Exam(s): CTA HEAD With Contrast IV Amt: 119ml optiray 320 EXAM: CT Angiography Head With Intravenous Contrast CLINICAL HISTORY: Reason for exam: neuro deficit, acute stroke suspected. TECHNIQUE: Axial computed tomographic angiography images of the head with intravenous contrast. CTDI is 20.76 mGy and DLP is 10.38 mGy-cm. Automated exposure control was utilized for the study. A dose lowering technique was utilized adhering to the principles of ALARA. MIP reconstructed images were created and reviewed. CONTRAST: Patient received 119ml optiray 320 of IV contrast COMPARISON: No relevant prior studies available. FINDINGS: Right internal carotid artery: Mild calcified plaque in the distal right internal carotid artery causing 25% stenosis. No aneurysm. Right anterior cerebral artery: The right A1 segment is absent. This is a normal anatomic variant. Right middle cerebral artery: Unremarkable. No occlusion or significant stenosis. No aneurysm. Right posterior cerebral artery: Moderate to severe focal stenosis of the proximal right posterior cerebral artery. No thrombus is seen. No aneurysm. Right vertebral artery: Unremarkable as visualized. Left internal carotid artery: Mild calcified plaque in the distal left internal carotid artery causing 20% stenosis. No aneurysm. Left anterior cerebral artery: Unremarkable. No occlusion or significant stenosis. No aneurysm. Left middle cerebral artery: Unremarkable. No occlusion or significant stenosis. No aneurysm. Left posterior cerebral artery: Unremarkable. No occlusion or significant stenosis. No aneurysm. Left vertebral artery: Unremarkable as visualized. Basilar artery: Unremarkable. No occlusion or significant stenosis. No aneurysm. 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 No thrombus is seen. Mild calcified plaque causing 20-25% stenosis of the proximal internal carotid arteries bilaterally. Communications: Call Doctor Stroke Electronically signed by: Dain Elizabeth MD 11/07/24 23:54 PM Neck CTA 11/07/24 22:08 CR Exam(s): CTA NECK With Contrast IV Amt: 119ml optiray 320 EXAM: CT Angiography Neck With Intravenous Contrast CLINICAL HISTORY: Reason for exam: neuro deficit, acute stroke suspected. TECHNIQUE: Routine carotid CT angiography protocol was performed with intravenous contrast. NASCET criteria using the distal ICAs for comparison were used for evaluation of stenoses. CTDI is 13.45 mGy and DLP is 569.02 mGy-cm. Automated exposure control was utilized for the study. A dose lowering technique was utilized adhering to the principles of ALARA. MIP reconstructed images were created and reviewed. CONTRAST: Patient received 119ml optiray 320 of IV contrast COMPARISON: None. FINDINGS: VASCULATURE: Right common carotid artery: Calcified plaque causing 20% stenosis of the distal right common carotid artery. No dissection. Right internal carotid artery: Unremarkable. Extracranial segment is patent with no occlusion or significant stenosis. No dissection. Right external carotid artery: Unremarkable. No occlusion. Right vertebral artery: Unremarkable. No occlusion or significant stenosis. No dissection. Left common carotid artery: Unremarkable. No occlusion or significant stenosis. No dissection. Left internal carotid artery: Unremarkable. Extracranial segment is patent with no occlusion or significant stenosis. No dissection. Left external carotid artery: Unremarkable. No occlusion. Left vertebral artery: Unremarkable. No occlusion or significant stenosis. No dissection. Aorta: Small amount of atherosclerotic plaque in the aorta without aneurysm or dissection. NECK: Bones/joints: Mild degenerative changes throughout the cervical spine. 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 No fracture or subluxation. Soft tissues: Unremarkable. Lung apices: Clear. CAROTID STENOSIS REFERENCE USING NASCET CRITERIA: % ICA stenosis = (1 - narrowest ICA diameter/diameter of distal cervical ICA) x 100. Mild - <50% stenosis. Moderate - 50-69% stenosis. Severe - 70-94% stenosis. Near occlusion - 95-99% stenosis. Occluded - 100% stenosis. IMPRESSION: No acute findings in the arteries of the neck. Communications: Call Doctor Stroke Electronically signed by: Dain Elizabeth MD 11/08/24 00:00 AM Discharge Plan Visit Data Chief Complaint: Weakness Stated Complaint: WEAKNESS, NAUSEA, LIGHTHEADED, RT SIDE NUMBNESS, ED Provider: Marty Fraser ED Midlevel Provider: Vonnie Marie Discharge Problem: Paresthesias with subjective weakness, Hypertension, Dizziness Patient Disposition: Admitted As Inpatient Forms Stand Alone Forms: [facility] Prescriptions Prescriptions: No Action No Known Home Medications Referrals Referrals: Robin Sharpe MD [Primary Care Provider] -
[2024-11-07 22:27] LABS: Albumin Globulin Ratio 1.7 (0.9-2); Albumin Level 4.5 gm/dl (3.4-5.0); BUN Creatinine Ratio 11.7 (10-20); Bilirubin,Total 0.6 mg/dl (0.2-1.0); Calcium 9.1 mg/dl (8.6-10.3); Creatinine Clr Calc Pharmacy 94.8 ml/min; Globulin 2.6 gm/dl (2.5-4.0); Potassium 3.3 mmol/L (3.5-5.1); Total Protein 7.1 gm/dl (6.0-8.3)
[2024-11-07 22:38] LABS: Basophils # (auto) 0.03 K/uL (0.00-0.20); Basophils % (auto) 0.4 %; Eosinophils # (auto) 0.12 K/uL (0.00-0.50); Eosinophils % (auto) 1.6 %; Hematocrit (blood only) 43.7 % (42.0-52.0); Hemoglobin 14.5 g/dl (14.0-18.0); Immature Granulocytes # (auto) 0.02 K/uL (0.01-0.20); Immature Granulocytes % (auto) 0.3 %; Lymphocytes # (auto) 2.52 K/uL (1.20-3.40); Lymphocytes % (auto) 32.8 %; Mean Corpuscular Hemoglobin 28.7 pg (25.0-34.0); Mean Corpuscular Hgb Conc 33.2 g/dL (32.0-36.0); Mean Corpuscular Volume 86.4 fL (80.0-100.0); Mean Platelet Volume 9.4 fL (9.4-12.4); Monocytes % (auto) 7.8 %; Neutrophils # (auto) 4.39 K/uL (1.40-6.50); Neutrophils % (auto) 57.1 %; Platelet Count 301 K/uL (130-400); RDW Coefficient of Variation 12.7 % (11.5-14.5); RDW Standard Deviation 39.8 fL (36.4-46.3); Red Blood Count 5.06 M/uL (4.70-6.10); White Blood Count 7.68 K/ul (4.8-10.8)
[2024-11-07 22:39] LABS: Magnesium 2.2 mg/dl (1.7-2.4)
[2024-11-07 22:46] LABS: Troponin I High Sensitivity 5.6 pg/ml (0-20)
[2024-11-07] MEDS: OPTIRAY 320 125ml IV ONE (22:53)
[2024-11-07 23:13] LABS: Appearance Urine Clear (Clear); Bilirubin Urine Negative (Negative); Blood Urine Negative (Negative); Color Urine Yellow; Glucose Urine UA Negative (Negative); Ketones Urine Negative (Negative); Leukocyte Esterase Urine Negative (Negative); Nitrite Urine Negative (Negative); Protein Urine Negative (Negative); Specific Gravity Urine 1.014 (1.000-1.030); Urobilinogen Urine Negative (Negative)
--- NOTE | 2024-11-07 23:53 | CT Scan Report ---
Exam(s): CT HEAD Without Contrast EXAM: CT Head Without Intravenous Contrast CLINICAL HISTORY: Reason for exam: neuro deficit, acute stroke suspected. TECHNIQUE: Axial computed tomography images of the head/brain without intravenous contrast. CTDI is 36.18 mGy and DLP is 624.41 mGy-cm. Automated exposure control was utilized for the study. A dose lowering technique was utilized adhering to the principles of ALARA. COMPARISON: No relevant prior studies available. FINDINGS: Brain: Mild periventricular and deep and better low densities consistent with chronic small ulcer disease and/or senescent changes. The brain is otherwise unremarkable. No acute large vessel infarct or intracranial hemorrhage is seen. Ventricles: Unremarkable. No ventriculomegaly. Bones/joints: Unremarkable. No acute fracture. Soft tissues: Unremarkable. Sinuses: Unremarkable as visualized. No acute sinusitis. Mastoid air cells: Unremarkable as visualized. No mastoid effusion. IMPRESSION: Mild periventricular and deep and better low densities consistent with chronic small ulcer disease and/or senescent changes. The brain is otherwise unremarkable. No acute large vessel infarct or intracranial hemorrhage is seen. Communications: Call Doctor Stroke Electronically signed by: Dain Elizabeth MD 11/07/24 23:51 PM
--- NOTE | 2024-11-07 23:55 | CT Scan Report ---
Exam(s): CTA HEAD With Contrast IV Amt: 119ml optiray 320 EXAM: CT Angiography Head With Intravenous Contrast CLINICAL HISTORY: Reason for exam: neuro deficit, acute stroke suspected. TECHNIQUE: Axial computed tomographic angiography images of the head with intravenous contrast. CTDI is 20.76 mGy and DLP is 10.38 mGy-cm. Automated exposure control was utilized for the study. A dose lowering technique was utilized adhering to the principles of ALARA. MIP reconstructed images were created and reviewed. CONTRAST: Patient received 119ml optiray 320 of IV contrast COMPARISON: No relevant prior studies available. FINDINGS: Right internal carotid artery: Mild calcified plaque in the distal right internal carotid artery causing 25% stenosis. No aneurysm. Right anterior cerebral artery: The right A1 segment is absent. This is a normal anatomic variant. Right middle cerebral artery: Unremarkable. No occlusion or significant stenosis. No aneurysm. Right posterior cerebral artery: Moderate to severe focal stenosis of the proximal right posterior cerebral artery. No thrombus is seen. No aneurysm. Right vertebral artery: Unremarkable as visualized. Left internal carotid artery: Mild calcified plaque in the distal left internal carotid artery causing 20% stenosis. No aneurysm. Left anterior cerebral artery: Unremarkable. No occlusion or significant stenosis. No aneurysm. Left middle cerebral artery: Unremarkable. No occlusion or significant stenosis. No aneurysm. Left posterior cerebral artery: Unremarkable. No occlusion or significant stenosis. No aneurysm. Left vertebral artery: Unremarkable as visualized. Basilar artery: Unremarkable. No occlusion or significant stenosis. No aneurysm. 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 No thrombus is seen. Mild calcified plaque causing 20-25% stenosis of the proximal internal carotid arteries bilaterally. Communications: Call Doctor Stroke Electronically signed by: Dain Elizabeth MD 11/07/24 23:54 PM
--- NOTE | 2024-11-08 00:01 | CT Scan Report ---
Exam(s): CTA NECK With Contrast IV Amt: 119ml optiray 320 EXAM: CT Angiography Neck With Intravenous Contrast CLINICAL HISTORY: Reason for exam: neuro deficit, acute stroke suspected. TECHNIQUE: Routine carotid CT angiography protocol was performed with intravenous contrast. NASCET criteria using the distal ICAs for comparison were used for evaluation of stenoses. CTDI is 13.45 mGy and DLP is 569.02 mGy-cm. Automated exposure control was utilized for the study. A dose lowering technique was utilized adhering to the principles of ALARA. MIP reconstructed images were created and reviewed. CONTRAST: Patient received 119ml optiray 320 of IV contrast COMPARISON: None. FINDINGS: VASCULATURE: Right common carotid artery: Calcified plaque causing 20% stenosis of the distal right common carotid artery. No dissection. Right internal carotid artery: Unremarkable. Extracranial segment is patent with no occlusion or significant stenosis. No dissection. Right external carotid artery: Unremarkable. No occlusion. Right vertebral artery: Unremarkable. No occlusion or significant stenosis. No dissection. Left common carotid artery: Unremarkable. No occlusion or significant stenosis. No dissection. Left internal carotid artery: Unremarkable. Extracranial segment is patent with no occlusion or significant stenosis. No dissection. Left external carotid artery: Unremarkable. No occlusion. Left vertebral artery: Unremarkable. No occlusion or significant stenosis. No dissection. Aorta: Small amount of atherosclerotic plaque in the aorta without aneurysm or dissection. NECK: Bones/joints: Mild degenerative changes throughout the cervical spine. 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 No fracture or subluxation. Soft tissues: Unremarkable. Lung apices: Clear. CAROTID STENOSIS REFERENCE USING NASCET CRITERIA: % ICA stenosis = (1 - narrowest ICA diameter/diameter of distal cervical ICA) x 100. Mild - <50% stenosis. Moderate - 50-69% stenosis. Severe - 70-94% stenosis. Near occlusion - 95-99% stenosis. Occluded - 100% stenosis. IMPRESSION: No acute findings in the arteries of the neck. Communications: Call Doctor Stroke Electronically signed by: Dain Elizabeth MD 11/08/24 00:00 AM
[2024-11-08 00:19] LABS: INR 0.9 (0.9-1.1); Partial Thromboplastin Ratio 0.9; Partial Thromboplastin Time 23 Seconds (21-31); Prothrombin Time 9.7 Seconds (9.0-12.0)
--- NOTE | 2024-11-08 00:37 | XRay Report ---
Exam(s): XR CXR 1 VIEW EXAM: XR Chest, 1 View CLINICAL HISTORY: Reason for exam: neuro deficit, acute stroke suspected. TECHNIQUE: Frontal view of the chest. COMPARISON: No relevant prior studies available. FINDINGS: Lungs: Unremarkable. No consolidation. Pleural space: Unremarkable. No pleural effusion or pneumothorax. Heart: Unremarkable. No cardiomegaly or pulmonary vascular congestion. Bones/joints: No acute fracture. No dislocation. IMPRESSION: No evidence of acute cardiopulmonary disease. Electronically signed by: Kevyn Reyes M.D. 11/08/24 00:36 AM
--- NOTE | 2024-11-08 02:30 | History & Physical Report ---
Date of Service November 08, 2024 Assessment & Plan (1) Stroke-like symptoms: Plan: 54-year-old male with past medical history significant for prediabetes, dyslipidemia, hypertension, obesity, currently not taking any medications presents with right-sided numbness. Around 6 PM he felt dizziness. After he ate his dinner the dizziness seem to be improved but later around 8:30 and 9 PM he noticed his whole right side from head to toe was numb. Patient states he could not feel objects in his hand. He feels tight in his right arm region. When he was coming to the hospital was somewhat off balance and shuffling gait but in the ED his balance is improved. Currently dizziness improved. He says the whole right body numbness is almost same probably slightly improved. Speech is okay. No difficulty swallowing. No headaches. No double vision or blurred vision. No cough. No recent fevers. No runny nose or sore throat. Denies chest pain or shortness of breath. No nausea or abdominal pain. Normal bowel and bladder movements. His blood pressure was elevated in the ER. He was in the hospital in April 2023 with rectal pain and blood per rectum likely from anal fissure. At that time he had a stress echocardiogram for elevated troponin which was mostly negative study . At that time cardiology recommended lifestyle modification ,moderate intensity statin therapy and aspirin daily. But patient is not taking those medications. Patient not checking his blood pressures. But lately sometimes he was feeling jittery and attributed it to anxiety and stress. Strokelike symptoms Presents with a dizziness and also whole right-sided numbness Dizziness started around 6 PM and numbness started around 8:[address] head. Mild periventricular and deep low-density consistent with chronic small vessel disease. CTA head. Moderate to severe focal stenosis of the proximal right posterior cerebral artery. No thrombosis seen. Mild calcified plaque causing 20 to 25% stenosis of proximal internal carotid arteries bilaterally. CTA neck. No acute findings ER discussed with neurology. As patient is out of the window and symptoms are mild no stroke alert was called. Neurology recommend aspirin and Plavix. Will also start on statin. Will follow lipid profile and HbA1c levels Will follow stroke protocol. Neurochecks. Will follow MRI brain and also echo Telemetry Consult neurology in a.m. for further recommendations. Hypertension Elevated Will allow permissive hypertension IV labetalol as needed Obesity Counseling DVT prophylaxis SCDs Disposition Telemetry Full code History of Present Illness Chief Complaint: Right-sided numbness Primary Care Provider: Robin Sharpe MD 54-year-old male with past medical history significant for prediabetes, dyslipidemia, hypertension, obesity, currently not taking any medications presents with right-sided numbness. Around 6 PM he felt dizziness. After he ate his dinner the dizziness seem to be improved but later around 8:30 and 9 PM he noticed his whole right side from head to toe was numb. Patient states he could not feel objects in his hand. He feels tight in his right arm region. When he was coming to the hospital was somewhat off balance and shuffling gait but in the ED his balance is improved. Currently dizziness improved. He says the whole right body numbness is almost same probably slightly improved. Speech is okay. No difficulty swallowing. No headaches. No double vision or blurred vision. No cough. No recent fevers. No runny nose or sore throat. Denies chest pain or shortness of breath. No nausea or abdominal pain. Normal bowel and bladder movements. His blood pressure was elevated in the ER. He was in the hospital in April 2023 with rectal pain and blood per rectum likely from anal fissure. At that time he had a stress echocardiogram for elevated troponin which was mostly negative study . At that time cardiology recommended lifestyle modification ,moderate intensity statin therapy and aspirin daily. But patient is not taking those medications. Patient not checking his blood pressures. But lately sometimes he was feeling jittery and attributed it to anxiety and stress. Past medical history. As mentioned above Past surgical history. Colonoscopy. Right ACL reconstruction. Right knee meniscectomy. Vasectomy. Social history. . No smoking. No alcohol use. No drug use. Family history. Father had heart disorder. Mother had blood cancer.. Brother had thyroid issue. Allergies Allergy/AdvReac Type Severity Reaction Status Date / Time No Known Allergies Allergy Unverified 09/02/16 22:36 Home Medications Medication Instructions Recorded Confirmed Type No Known Home Medications 11/08/24 11/08/24 History Past Med/Surg History Problem List (Updated 11/08/24 @ 02:52 by Ehsan Gonzalez MD) Stroke-like symptoms Rectal bleeding (Acute) Elevated troponin (Acute) Rectal pain (Acute) No significant past surgical history No chronic diseases present Renal colic on right side (Acute) Medical History Troponin I above reference range Dyslipidemia, goal LDL below 100 Fissure, anal Family History Father Myocardial infarction Social History Smoking Status: Never smoker Second Hand Exposure: No; Do You Dip or Chew Tobacco: No; Tobacco Cessation Education Requested by Patient: No Hx Alcohol Use: No Hx Substance Use: No Preferred Language: [place] Communication Ability: Effective Mincing Machine Operator Required: No Beliefs That Will Affect Care: None Current Living Situation: Family Other Information That Helps Us Care for You: No Feels Safe at Home: Yes and No Is there a partner from a previous relationship who is making you feel unsafe now?: No Any Concerns about Your Family Situation: No Would You Like to Speak to Someone About Your Situation: No Safety Concerns: Feels Safe At This Time Assistive Devices: None Review of Systems Review of Systems: All systems reviewed & are unremarkable except as noted in HPI & below Physical Exam Physical Exam: General- Not in distress Head- atraumatic Eyes- PERRL.EOMI ENT- oropharynx clear Neck- supple, no JVD. Lungs- clear to auscultation no wheezing or crackles Heart- regular rate and rhythm; no murmur, no gallop. Abdomen- normal bowel sounds, soft, nontender, no distension Extremities- no pretibial edema, no erythema seen Neuro- alert, oriented ; PERRL, EOMI; no facial palsy; no dysarthria; motor 5/5 bilaterally; no pronator drift, finger nose test normal, co ordination of movements normal, sensations mildly diminished right side, position sense intact Skin- warm & dry Results & Data Results & Data Vital Signs (Past 12 Hours) Vital Signs Temp Pulse Pulse Resp BP BP Pulse Ox 11/08/24 01:30 95 H 11/08/24 01:24 92 H 20 176/94 H 96 11/08/24 01:00 91 H 22 168/92 H 96 11/08/24 00:30 84 22 219/121 H 97 11/08/24 00:30 90 16 219/121 H 96 11/08/24 00:00 90 16 202/108 H 97 11/07/24 23:04 94 H 20 172/114 H 96 11/07/24 23:03 94 H 22 172/114 H 96 11/07/24 23:03 11/07/24 22:00 88 17 190/107 H 98 11/07/24 21:38 85 18 186/123 H 97 11/07/24 21:24 85 11/07/24 21:14 36.9 C 91 H 17 181/100 H 97 O2 Del Method O2 Flow Rate 11/08/24 01:30 11/08/24 01:24 11/08/24 01:00 11/08/24 00:30 11/08/24 00:30 11/08/24 00:00 11/07/24 23:04 Room Air 11/07/24 23:03 11/07/24 23:03 Room Air 96 11/07/24 22:00 11/07/24 21:38 11/07/24 21:24 11/07/24 21:14 Room Air Diagnostic Findings Laboratory Results WBC 7.68 K/ul (4.8-10.8) 11/07/24 21:30 RBC 5.06 M/uL (4.70-6.10) 11/07/24 21:30 Hgb 14.5 g/dl (14.0-18.0) 11/07/24 21:30 Hct 43.7 % (42.0-52.0) 11/07/24 21:30 MCV 86.4 fL (80.0-100.0) 11/07/24 21:30 MCH 28.7 pg (25.0-34.0) 11/07/24 21:30 MCHC 33.2 g/dL (32.0-36.0) 11/07/24 21:30 RDW Std Deviation 39.8 fL (36.4-46.3) 11/07/24 21:30 RDW Coeff of Bunny 12.7 % (11.5-14.5) 11/07/24 21:30 Plt Count 301 K/uL (130-400) 11/07/24 21:30 MPV 9.4 fL (9.4-12.4) 11/07/24 21: Immature Gran % (Auto) 0.3 % 11/07/24 21:30 Neut % (Auto) 57.1 % 11/07/24 21:30 Lymph % (Auto) 32.8 % 11/07/24 21:30 [place] % (Auto) 7.8 % 11/07/24 21:30 Eos % (Auto) 1.6 % 11/07/24 21:30 Baso % (Auto) 0.4 % 11/07/24 21:30 Neut # (Auto) 4.39 K/uL (1.40-6.50) 11/07/24 21: Lymph # (Auto) 2.52 K/uL (1.20-3.40) 11/07/24 21:30 [place] # (Auto) 0.60 K/uL (0.11-0.59) H 11/07/24 21:30 Eos # (Auto) 0.12 K/uL (0.00-0.50) 11/07/24 21:30 Baso # (Auto) 0.03 K/uL (0.00-0.20) 11/07/24: Immature Gran # (Auto) 0.02 K/uL (0.01-0.20) 11/07/24 21:30 PT 9.7 Seconds (9.0-12.0) 11/07/24:36 INR 0.9 (0.9-1.1) 11/07/24 21:36 APTT 23 Seconds (21-31) 11/07/24 21:36 PTT Ratio 0.9 11/07/24 21:36 Sodium 143 mmol/L (136-145) 11/07/24 21:30 Potassium 3.3 mmol/L (3.5-5.1) L 11/07/24 21:30 Chloride 105 mmol/L (98-107) 11/07/24 21:30 Carbon Dioxide 32 mmol/L (21-32) 11/07/24 21:30 Anion Gap 6 (3-11) 11/07/24 21:30 BUN 13 mg/dl (6-23) 11/07/24 21:30 Creatinine 1.11 mg/dl (0.6-1.4) 11/07/24 21:30 Est Cr Clr Drug Dosing 94.8 ml/min 11/07/24 21:30 eGFR 78.42 11/07/24 21:30 BUN/Creatinine Ratio 11.7 (10-20) 11/07/24 21: Glucose 118 mg/dl (70-99(Fasting)) H 11/07/24 21: Calcium 9.1 mg/dl (8.6-10.3) 11/07/24 21: Magnesium 2.2 mg/dl (1.7-2.4) 11/07/24: Total Bilirubin 0.6 mg/dl (0.2-1.0) 11/07/24: AST 22 U/L (13-39) 11/07/24: ALT 36 U/L (7-52) 11/07/24: Alkaline Phosphatase 75 U/L (34-104) 11/07/24: Troponin I High Sens 5.6 pg/ml (0-20) 11/07/24: Total Protein 7.1 gm/dl (6.0-8.3) 11/07/24: Albumin 4.5 gm/dl (3.4-5.0) 11/07/24: Globulin 2.6 gm/dl (2.5-4.0) 11/07/24: Albumin/Globulin Ratio 1.7 (0.9-2) 11/07/24: Urine Color Yellow 11/07/24: Urine Appearance Clear (Clear) 11/07/24: Urine pH 7.0 (4.5-7.5) 11/07/24: Ur Specific [place] 1.014 (1.000-1.030) 11/07/24: Urine Protein Negative (Negative) 11/07/24: Urine Glucose (UA) Negative (Negative) 11/07/24: Urine Ketones Negative (Negative) 11/07/24: Urine Blood Negative (Negative) 11/07/24: Urine Nitrite Negative (Negative) 11/07/24: Urine Bilirubin Negative (Negative) 11/07/24: Urine Urobilinogen Negative (Negative) 11/07/24: Ur Leukocyte Esterase Negative (Negative) 11/07/24:28 Blood Type A Positive 11/07/24 22:49 Antibody Screen NEGATIVE 01/10/25 22:49 Impressions Chest X-Ray 11/07/24 22:08 Exam(s): XR CXR 1 VIEW EXAM: XR Chest, 1 View CLINICAL HISTORY: Reason for exam: neuro deficit, acute stroke suspected. TECHNIQUE: Frontal view of the chest. COMPARISON: No relevant prior studies available. FINDINGS: Lungs: Unremarkable. No consolidation. Pleural space: Unremarkable. No pleural effusion or pneumothorax. Heart: Unremarkable. No cardiomegaly or pulmonary vascular congestion. Bones/joints: No acute fracture. No dislocation. IMPRESSION: No evidence of acute cardiopulmonary disease. Electronically signed by: Kevyn Reyes M.D. 11/08/24 00:[address] 11/07/24 22:08 CR Exam(s): CT HEAD Without Contrast EXAM: CT Head Without Intravenous Contrast CLINICAL HISTORY: Reason for exam: neuro deficit, acute stroke suspected. TECHNIQUE: Axial computed tomography images of the head/brain without intravenous contrast. CTDI is 36.18 mGy and DLP is 624.41 mGy-cm. Automated exposure control was utilized for the study. A dose lowering technique was utilized adhering to the principles of ALARA. COMPARISON: No relevant prior studies available. FINDINGS: Brain: Mild periventricular and deep and better low densities consistent with chronic small ulcer disease and/or senescent changes. The brain is otherwise unremarkable. No acute large vessel infarct or intracranial hemorrhage is seen. Ventricles: Unremarkable. No ventriculomegaly. Bones/joints: Unremarkable. No acute fracture. Soft tissues: Unremarkable. Sinuses: Unremarkable as visualized. No acute sinusitis. Mastoid air cells: Unremarkable as visualized. No mastoid effusion. IMPRESSION: Mild periventricular and deep and better low densities consistent with chronic small ulcer disease and/or senescent changes. The brain is otherwise unremarkable. No acute large vessel infarct or intracranial hemorrhage is seen. Communications: Call Doctor Stroke Electronically signed by: Dain Elizabeth MD 11/07/24 23:51 PM Head CTA 11/07/24 22:08 CR Exam(s): CTA HEAD With Contrast IV Amt: 119ml optiray 320 EXAM: CT Angiography Head With Intravenous Contrast CLINICAL HISTORY: Reason for exam: neuro deficit, acute stroke suspected. TECHNIQUE: Axial computed tomographic angiography images of the head with intravenous contrast. CTDI is 20.76 mGy and DLP is 10.38 mGy-cm. Automated exposure control was utilized for the study. A dose lowering technique was utilized adhering to the principles of ALARA. MIP reconstructed images were created and reviewed. CONTRAST: Patient received 119ml optiray 320 of IV contrast COMPARISON: No relevant prior studies available. FINDINGS: Right internal carotid artery: Mild calcified plaque in the distal right internal carotid artery causing 25% stenosis. No aneurysm. Right anterior cerebral artery: The right A1 segment is absent. This is a normal anatomic variant. Right middle cerebral artery: Unremarkable. No occlusion or significant stenosis. No aneurysm. Right posterior cerebral artery: Moderate to severe focal stenosis of the proximal right posterior cerebral artery. No thrombus is seen. No aneurysm. Right vertebral artery: Unremarkable as visualized. Left internal carotid artery: Mild calcified plaque in the distal left internal carotid artery causing 20% stenosis. No aneurysm. Left anterior cerebral artery: Unremarkable. No occlusion or significant stenosis. No aneurysm. Left middle cerebral artery: Unremarkable. No occlusion or significant stenosis. No aneurysm. Left posterior cerebral artery: Unremarkable. No occlusion or significant stenosis. No aneurysm. Left vertebral artery: Unremarkable as visualized. Basilar artery: Unremarkable. No occlusion or significant stenosis. No aneurysm. 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 No thrombus is seen. Mild calcified plaque causing 20-25% stenosis of the proximal internal carotid arteries bilaterally. Communications: Call Doctor Stroke Electronically signed by: Dain Elizabeth MD 11/07/24 23:54 PM Neck CTA 11/07/24 22:08 CR Exam(s): CTA NECK With Contrast IV Amt: 119ml optiray 320 EXAM: CT Angiography Neck With Intravenous Contrast CLINICAL HISTORY: Reason for exam: neuro deficit, acute stroke suspected. TECHNIQUE: Routine carotid CT angiography protocol was performed with intravenous contrast. NASCET criteria using the distal ICAs for comparison were used for evaluation of stenoses. CTDI is 13.45 mGy and DLP is 569.02 mGy-cm. Automated exposure control was utilized for the study. A dose lowering technique was utilized adhering to the principles of ALARA. MIP reconstructed images were created and reviewed. CONTRAST: Patient received 119ml optiray 320 of IV contrast COMPARISON: None. FINDINGS: VASCULATURE: Right common carotid artery: Calcified plaque causing 20% stenosis of the distal right common carotid artery. No dissection. Right internal carotid artery: Unremarkable. Extracranial segment is patent with no occlusion or significant stenosis. No dissection. Right external carotid artery: Unremarkable. No occlusion. Right vertebral artery: Unremarkable. No occlusion or significant stenosis. No dissection. Left common carotid artery: Unremarkable. No occlusion or significant stenosis. No dissection. Left internal carotid artery: Unremarkable. Extracranial segment is patent with no occlusion or significant stenosis. No dissection. Left external carotid artery: Unremarkable. No occlusion. Left vertebral artery: Unremarkable. No occlusion or significant stenosis. No dissection. Aorta: Small amount of atherosclerotic plaque in the aorta without aneurysm or dissection. NECK: Bones/joints: Mild degenerative changes throughout the cervical spine. 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 No fracture or subluxation. Soft tissues: Unremarkable. Lung apices: Clear. CAROTID STENOSIS REFERENCE USING NASCET CRITERIA: % ICA stenosis = (1 - narrowest ICA diameter/diameter of distal cervical ICA) x 100. Mild - <50% stenosis. Moderate - 50-69% stenosis. Severe - 70-94% stenosis. Near occlusion - 95-99% stenosis. Occluded - 100% stenosis. IMPRESSION: No acute findings in the arteries of the neck. Communications: Call Doctor Stroke Electronically signed by: Dain Elizabeth MD 11/08/24 00:00 AM ECG Additional Comments: ECG. Normal sinus rhythm rate of 86. Possible left atrial enlargement. T wave amplitude decreased in anterior leads. QTc 435. Code Status & VTE Plan VTE Prophylaxis Plan VTE Prophylaxis will be ordered: Yes
[2024-11-08] MEDS: ASPIRIN CHEW 324 MG PO STA (02:34)
[2024-11-08] MEDS: CLOPIDOGREL BISULFATE 300 MG TAB PO STA ×2 (02:34→03:34)
[2024-11-08] MEDS ORDERED: LABETALOL HCL IV 5 MG/ML 20ML IV PRN ×2 (02:58→10:15)
[2024-11-08] MEDS ORDERED: ASPIRIN 81 MG CHEW PO ONE (02:58)
[2024-11-08] MEDS ORDERED: ACETAMINOPHEN 325 MG TAB PO PRN (02:58)
[2024-11-08] MEDS ORDERED: PHARMACIST DISCHARGE MED REC CONSULT PRN (02:58)
[2024-11-08] MEDS ORDERED: POLYETHYLENE (MIRALAX) 17 GM PACK PO PRN (02:58)
[2024-11-08] MEDS ORDERED: NITROGLYCERIN SL 0.4 MG/TAB TAB SL PRN (02:58)
--- OUTSIDE RECORDS SUMMARY | 2024-11-08 05:17 | External Medical Summary | Summary of Care ---
Author Name Unknown Organization [facility] Address [address] [place] [address] Phone [phone] Care Team Providers Care Safety Fire Boss Name Role Phone Douglas Coronado MD Primary Care Provider [phone] Encounter Details Date Type Department Care Team (Late st Contact Info) Description 09/22/2024 Orders Only Outcomes Research Department [address] [place] [address] Terra Perkins CHRA My[facility] Research Other*[id number] Allergies No known active allergiesdocumented as of this encounter (statuses as of 09/22/2024) Medications Aspirin 81 MG Oral Tablet Chewable 1 Tablet. 05/08/2023 Active documented as of this encounter (statuses as of 09/22/2024) Active Problems Problem Noted Date Diagnosed Date HTN, goal below 130/80 05/22/2023 Obesity, Class I, BMI 30.0-34.9 (see actual BMI) 11/01/2022 Prediabetes 11/01/2022 Dyslipidemia 11/01/2022 documented as of this encounter (statuses as of 09/22/2024) Resolved Problems Problem Noted Date Diagnosed Date Resolved Date NO KNOWN PROBLEMS 12/18/2007 10/17/2021 documented as of this encounter (statuses as of 09/22/2024) Immunizations Name Administration Dates Next Due PPD 09/15/2009 Seasonal Influenza Vac., MDV , IM, 0.5 mL (Fluzone) 09/15/2015,08/04/2012 Seasonal Influenza, PF, 6 M & above, IM , (FluLaval or Fluzone) 11/15/2022,10/19/2021,07/13/2020 Seasonal Influenza, Quadriva lent, No Preserve, IM 10/09/2016 TDAP (age 10 and older)(Boostrix) 10/19/2021 TDAP, Age 7 and older, IM (Adacel) 04/28/2007 Zoster Vaccine Recombinant (Shingrix) 11/15/2022 ,10/19/2021 documented as of this encounter Social History Tobacco Use Types Packs/Day Years Used Date Smoking Tobacco: Never Smokeless Tobacco: Never Alcohol Use Standard Drinks/Week Comments No 0 (1 standard drink = 0.6 oz pur e alcohol) Utilities Answer Date Recorded Do you have trouble paying y our heating, water, or electric bill? (Adult - for ages 18 years and over) Not on file 04/15/2024 Is your family able to pay t he heat, water, or electric bill? (Household - for ages 0-17 years) Not on file 04/15/2024 Does your family have access to good internet? (Household - for ages 0-17 years) Not on file 04/15/2024 Social Connections Answer Date Recorded How often do you feel lonely or isolated from those around you? 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 file Not on file Not on file documented as of this encounter Plan of Treatment Scheduled Orders Name Type Priority Associated Diagnoses Orde r Schedule MYCODE INITIAL ADULT Lab Routine My[facility] Research Other*[id number] Expected: 09/22/2024 (Approximate), Expires: 10/12/2025 Scheduled Procedures Name Priority Associated Diagnoses Date/Ti me COLONOSCOPY FLEXIBLE PROXIMAL DIAGNOSTIC Recall History of colon polyps Health Maintenance Due Date Last Done Comments HIV Screening 1984 Albumin/Creatinine Ratio 1987 Hepatitis C Screening 1987 Hepatitis B Vaccine (1 of 3 - 19+ 3-dose series) 1988 Cologuard 2014 Fecal Occult Blood Test 2014 Sigmoidoscopy 2014 Depression Screening 10/09/2017 10/09/2016 GFR 11/15/2023 11/15/2022, 09/29, 2017, Additional history exists HbA1c 11/15/2023 11/15/2022, 10/20/2021 COVID-19 Vaccine ( - season) 2024 Influenza Vaccine (FLU shot) (#1) 2024 11/15/2022, 10/19/2021, 07/13/2020, Additional history exists Lipid Panel 10/20/2026 10/20/2021 Colonoscopy 06/26/2027 06/26/2022, 06/26/2022 Colorectal Cancer Screening 06/26/2027 DTap/Tdap Vaccines (3 - Td or Tdap) 10/19/2031 10/19/2021, 04/28/2007 RETIRED - COLONOSCOPY-EVERY 5 YRS AGES 18-100 Discontinued 06/26/2022, 06/26/2022 Zoster Vaccines Completed 11/15/2022, 10/19/2021 HPV (Gardasil) Vaccine Aged Out No lo nger eligible based on patient's age to complete this topic MENINGOCOCCAL (MENACTRA/MENVEO) Aged Out No longer eligible based on patient's age to complete this topic Pneumococcal Vaccine: Pediatrics (0 to 5 Years) and At-Risk Patients (6 to 64 Years) Aged Out No longer eligible based on patient's age to complete this topic documented as of this encounter Medical Devices Not on filedocumented as of this encounter Visit Diagnoses Diagnosis [facility] Research Other*[id number] documented in this encounter Care Teams Safety Fire Boss Relationship Specialty Start Date End Date Douglas Coronado MD [address] [place] [id number] PCP - General Family Medicine 05/22/23 documented as of this encounter
--- OUTSIDE RECORDS SUMMARY | 2024-11-08 05:17 | External Medical Summary | Summary of Care ---
Author Name Unknown Organization [facility] Address [address] [place] [address] Phone [phone] Care Team Providers Care Clinical Marketing Manager Name Role Phone Douglas Coronado MD Primary Care Provider [phone] Reason for Visit * Reason Onset Date Comments Health Maintenance 09/17/2024 Encounter Details Date Type Department Care Team (Late st Contact Info) Description 09/17/2024 Telephone Family Practice [facility] [address] [place] [address] Douglas Coronado MD [address] [facility] [address] Health Maintenance Allergies No known active allergiesdocumented as of this encounter (statuses as of 09/17/2024) Medications Aspirin 81 MG Oral Tablet Chewable 1 Tablet. 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 Not on file Not on file documented as of this encounter Miscellaneous Notes * Telephone Encounter - Sue Renner LPN - 09/17/2024 10:20 AM EST Care Gaps Comprehensive Care Outreach Last Office/Telemedicine Visit: 05/22/2023 (in office), Visit date not found (telemedicine) Next Office Visit: Visit date not found Hemoglobin AIC Results: Lab Results Component Value Date/Time HEMOGLOBIN A1C - [facility] 6.2 (H) 11/15/2022 04:02 PM HEMOGLOBIN A1C - [facility] 6.1 (H) 10/20/2021 01:49 PM BP Readings from Last 1 Encounters: 05/22/23 156/88 Reviewed Health Maintenance below: Health Maintenance Topic Date Due HIV Screening Never done Albumin/Creatinine Ratio Never done Hepatitis C Screening Never done Hepatitis B Vaccine (1 of 3 - 19+ 3-dose series) Never done Depression Screening 10/09/2017 HbA1c 11/15/2023 GFR 11/15/2023 Influenza Vaccine (FLU shot) (1) 06/29/2024 Ov labs Care Gap Outreach Action Taken: Left message documented in this encounter Plan of Treatment Scheduled Procedures Name Priority Associated Diagnoses Date/Ti [...] HbA1c 11/15/2023 11/15/2022, 10/20/2021 COVID-19 Vaccine ( season) 2024 Influenza Vaccine (FLU shot) (#1) [...] Not on filedocumented as of this encounter Care Teams Clinical Marketing Manager Relationship Specialty Start Date End Date Douglas Coronado MD [address] [facility] [place] [id number] PCP - General Family Medicine 05/22/23 documented as of this encounter
[2024-11-08] MEDS: SODIUM CHLORIDE 0.9% 1,000 ML IV SCH (05:35)
[2024-11-08] MEDS: CLOPIDOGREL BISULFATE 75 MG TAB PO SCH (08:18)
[2024-11-08] MEDS: ASPIRIN 81 MG ECTAB PO SCH (08:18)
[2024-11-08] MEDS: ATORVASTATIN 40 MG TAB PO SCH (08:18)
[2024-11-08 08:39] LABS: Basophils # (auto) 0.03 K/uL (0.00-0.20); Basophils % (auto) 0.3 %; Eosinophils # (auto) 0.06 K/uL (0.00-0.50); Eosinophils % (auto) 0.7 %; Hematocrit (blood only) 45.5 % (42.0-52.0); Immature Granulocytes # (auto) 0.02 K/uL (0.01-0.20); Immature Granulocytes % (auto) 0.2 %; Lymphocytes # (auto) 1.76 K/uL (1.20-3.40); Lymphocytes % (auto) 19.9 %; Mean Corpuscular Hemoglobin 28.4 pg (25.0-34.0); Mean Platelet Volume 9.5 fL (9.4-12.4); Monocytes # (auto) 0.55 K/uL (0.11-0.59); Monocytes % (auto) 6.2 %; Neutrophils # (auto) 6.41 K/uL (1.40-6.50); Neutrophils % (auto) 72.7 %; Platelet Count 317 K/uL (130-400); RDW Coefficient of Variation 12.7 % (11.5-14.5); RDW Standard Deviation 39.8 fL (36.4-46.3); Red Blood Count 5.29 M/uL (4.70-6.10); White Blood Count 8.83 K/ul (4.8-10.8)
[2024-11-08 08:55] LABS: Estimated Average Glucose 123 mg/dl; Hemoglobin A1C 5.9 % (4.5-5.6)
[2024-11-08 08:59] LABS: BUN Creatinine Ratio 9.7 (10-20); Calcium 9.1 mg/dl (8.6-10.3); Chol HDL Ratio 5.8 (0-5); Creatinine Clr Calc Pharmacy 102.2 ml/min; Potassium 3.6 mmol/L (3.5-5.1)
[2024-11-08] MEDS: GADOBUTROL 65ML VIAL IV ONE (10:13)
[2024-11-08] MEDS: lisinopril 20 MG TAB PO SCH (10:37)
--- NOTE | 2024-11-08 11:48 | Magnetic Resonance Report ---
MR brain wo/w con CLINICAL HISTORY: right sided numbness TECHNIQUE: Multiplanar and multisequence MR images of the brain were obtained prior to and following administration of gadolinium contrast. Comparison: None available at the time of this dictation. FINDINGS: Restricted diffusion is noted in the left thalamus with associated edema. Hypodensity previously note d in the left lenticular nucleus is without restricted diffusion. Foci of T2 and FLAIR hyperintensity are noted in the paraventricular areas consistent with chronic small vessel ischemic disease. Ex vac uo ventriculomegaly and sulcal enlargement is noted compatible with diffuse volume loss. No mass or a bnormal enhancement is seen. There is no mass effect or midline shift. There is no evidence of acute intraparenchymal hemorrhage. No extra axial fluid collections are seen. The corpus callosum, pituitar y gland, and cerebellar tonsils appear grossly unremarkable. Flow voids of the major intracranial arterial vessels are identified. The imaged portions of the para nasal sinuses, mastoid air cells, and orbits are unremarkable. IMPRESSION: Acute left thalamic stroke is seen. Previously noted lentiform nucleus hypodensity is likely chronic. ACT 112: Negative or not required by law. Electronically signed by: Lucas Gurrola M.D. 11/08/2024 11:46 AM
--- NOTE | 2024-11-08 12:30 | Hospitalist Progress Note ---
Date of Service November 08, 2024 Assessment & Plan (1) Acute cerebrovascular accident (CVA) due to ischemia: Plan: Left thalamic (2) Hypertension, uncontrolled: (3) Dyslipidemia, goal LDL below 100: (4) Prediabetes: (5) Obesity (BMI 30.0-34.9): Plan Patient presented with acute right-sided paresthesias and ataxia. MRI revealing acute left thalamic cerebrovascular accident Continue with stroke workup, echocardiogram pending Long discussion with patient secondary stroke prevention Dual antiplatelet therapy High-dose statin Start lisinopril for blood pressure control Jardiance for stroke risk reduction in the setting of early diabetes Counseling on diet and weight loss Neurology consultation pending Physical and Occupational Therapy eval's pending Anticipate discharge home tomorrow with ongoing outpatient therapy and follow-up 54 minutes spent in care of the bedside, review of records, patient with staff, interpretation of data Admission and Anticipated Discharge Date Admission Date: November 08, 2024 Subjective Patient complains of essentially complete right sided paresthesia and numbness. Complains of some poor coordination with his hands and fingers Physical Exam Physical Exam: Constitutional: Alert, no acute distress HEENT: Mucous membranes moist. Lungs: Clear to auscultation, decreased, no wheezes rales or rhonchi CV: S1-S2, regular Abdomen: Soft, nontender, nondistended Extremities: No significant edema Neuro: Decreased sensation on right side, mild ataxia with [id number] on right versus left, mild ataxia [id number] right versus left, rapid alternating movement slowed on right versus left Psych: Cooperative, normal mood Results & Data Results & Data Vital Signs (Past 12 Hours) Vital Signs Temp Pulse Pulse Resp BP BP Pulse Ox 11/08/24 11:47 36.5 C 82 18 163/93 H 97 11/08/24 10:39 67 11/08/24 07:35 36.5 C 86 18 183/102 H 94 11/08/24 03:52 36.6 C 89 18 181/96 H 98 11/08/24 02:58 36.6 C 89 18 181/96 H 99 11/08/24 02:58 11/08/24 02:39 85 21 187/112 H 97 11/08/24 01:30 90 20 182/100 H 97 11/08/24 01:30 95 H 11/08/24 01:24 92 H 20 176/94 H 96 11/08/24 01:00 91 H 22 168/92 H 96 11/08/24 00:30 84 22 219/121 H 97 11/08/24 00:30 90 16 219/121 H 96 Pulse Ox O2 Del Method O2 Del Method 11/08/24 11:47 Room Air 11/08/24 10:39 11/08/24 07:35 Room Air 11/08/24 03:52 Room Air 11/08/24 02:58 Room Air 11/08/24 02:58 99 Room Air 11/08/24 02:39 11/08/24 01:30 Room Air 11/08/24 01:30 11/08/24 01:24 11/08/24 01:00 11/08/24 00:30 11/08/24 00:30 Diagnostic Findings Reviewed imaging, laboratory and diagnostic studies. Pertinent findings as below. Electrolytes within normal range Hemoglobin A1c 5.9% Triglycerides 75 Total cholesterol 239 LDL 183 HDL 41 MRI brain shows acute left thalamic infarct
--- NOTE | 2024-11-08 13:42 | Neurology Consultation ---
Date of Consultation November 08, 2024 Assessment & Plan (1) Acute cerebrovascular accident (CVA) due to ischemia: Acute left thalamic stroke Recommend continued stroke work up to include the following: Echocardiogram as part of complete stroke workup Continue frequent neurological assessments Obtain stat CT brain without contrast for any acute neurological decline Continue to monitor/control blood pressure & blood glucose Continue to monitor telemetry closely Recommend ZioPatch at DC if no evidence of arrhythmia during inpatient monitoring Continue to monitor renal and hepatic function, keep euvolemic Metabolic workup should include hgbA1c, fasting lipids, homocysteine, TSH, D Dimer, RPR, urinalysis Recommend DAPT for at least 3 weeks Recommend high dose statin therapy indefinitely if tolerated Ok from neurology perspective for VTE prophylaxis PT/OT/SLT to eval and treat Recommend eval for DAVIDA and consider outpatient polysomnography Telehealth Consultation Telehealth Information Telehealth Information: I performed this visit using a real-time telehealth connection between my location and the patients location ([facility]). After connecting through interactive tele-video, patient was identified by name and date of and/or wristband check.Patient (or authorized healthcare licensing representative) was informed that this was a telemedicine visit and it was being conducted confidentially over secure lines. My office door was closed and no one else was present in the room with me.Patient (or authorized healthcare licensing representative) provided consent to proceed with the visit, expressed an understanding of privacy and security of the telemedicine visit, and gave permission to have a hospital licensing representative in the room in order to assist with the visit and to conduct portions of the visit, as needed. I informed the patient (or authorized healthcare licensing representative) that I reviewed their record and presented the opportunity for them to ask any questions regarding the visit today. The patient agreed to participate. History of Present Illness Reason for Consultation: Stroke like symptoms Requesting Physician: Dr. Meyer Attending Physician: Yared Reid DO History of Present Illness 54yo male with known hx of HTN dyslipidemia, prediabetes, obesity presented with report of right hemiparesthesia. Reportedly felt sudden onset of dizziness at approx 6pm finished dinner. [place] as if dizziness improved but later in evening approx 8-9pm noted right sided numbness. [place] numbness from head to toe on right side. Arrived to ER hypertensive. He has undergone emergent stroke imaging including CT brain without contrast, personally reviewed, revealing no overt evidence of hemorrhage. CT angiographic studies of head and neck, also personall y reviewed, reveal no overt evidence of large vessel occlusion or significant/flow limiting stenosis. There is noted severe focal stenosis of the right BLACKING WHEEL TENDER and mild bilaterally ICA stenosis noted as well. He has undergone MRI brain without contrast revealing deep left subcortical thalamocapsular stroke. I have performed televideo consultation. He is alert & oriented; able to answer all questions appropriately, name objects on televideo monitor, repeat phrases and perform complex/embedded commands without deficit. Neurological exam is non lateralizing/nonfocal in terms of motor strength and coordination. Continues to reported complete numbness right side from head to toe. He reports snoring an feeling like he has trouble sleeping. He is interested in a sleep study and speaking with a acoustic intelligence specialist. Allergies Allergy/AdvReac Type Severity Reaction Status Date / Time No Known Allergies Allergy Unverified 09/02/16 22:36 Home Medications Medication Instructions Recorded Confirmed Type No Known Home Medications 11/08/24 11/08/24 History Patient History Medical History Troponin I above reference range Dyslipidemia, goal LDL below 100 Fissure, anal Family History Father Myocardial infarction Social History Smoking Status: Never smoker Second Hand Exposure: No; Do You Dip or Chew Tobacco: No; Tobacco Cessation Education Requested by Patient: No Hx Alcohol Use: No Hx Substance Use: No Preferred Language: Colombian Communication Ability: Effective Team Coordinator Required: No Beliefs That Will Affect Care: None Current Living Situation: Family Other Information That Helps Us Care for You: No Feels Safe at Home: Yes and No Is there a partner from a previous relationship who is making you feel unsafe now?: No Any Concerns about Your Family Situation: No Would You Like to Speak to Someone About Your Situation: No Safety Concerns: Feels Safe At This Time Assistive Devices: None Physical Exam Neurological Examination: Mental Status: Awake and alert. Oriented to person, place, and time. Fluency naming repetition and comprehension appear grossly intact. Affect remains appropriate. CN testing: I: Deferred II:Reports no changes in visual acuity III/IV/: No evidence of gaze preference, hippus, nystagmus or roving eye movements V: Facial sensation reportedly decreased right side VII: Facial movements appear without evidence of asymmetry VIII: Hearing appears grossly intact to loud voice bilaterally IX/X: Palate appears to elevate symmetrically XI: Shoulder shrug appears symmetric/ grossly intact bilaterally XII: Tongue protrudes midline without evidence of biting Motor exam: Strength appears grossly intact/symmetric in all extremities Sensory: Reports right sided numbness Coordination: Deferred Reflexes: Deferred Gait: Deferred Results & Data Vital Signs (Past 12 Hours) Vital Signs Temp Pulse Pulse Resp BP BP Pulse Ox 11/08/24 11:47 36.5 C 82 18 163/93 H 97 11/08/24 10:39 67 11/08/24 07:35 36.5 C 86 18 183/102 H 94 11/08/24 03:52 36.6 C 89 18 181/96 H 98 11/08/24 02:58 36.6 C 89 18 181/96 H 99 11/08/24 02:58 11/08/24 02:39 85 21 187/112 H 97 Pulse Ox O2 Del Method O2 Del Method 11/08/24 11:47 Room Air 11/08/24 10:39 11/08/24 07:35 Room Air 11/08/24 03:52 Room Air 11/08/24 02:58 Room Air 11/08/24 02:58 99 Room Air 11/08/24 02:39 Laboratory Results Abnormal lab results 11/07/24 11/08/24 Range/Units 21:30 08:13 Peach # (Auto) 0.60 H (0.11-0.59) K/uL Potassium 3.3 L (3.5-5.1) mmol/L BUN/Creatinine Ratio 9.7 L (10-20) Glucose 118 H 154 H (70-99(Fasting)) mg/dl Hemoglobin A1c 5.9 H (4.5-5.6) % Cholesterol 239 H (0-200) mg/dl Cholesterol/HDL Ratio 5.8 H (0-5) Diagnostic Findings Chest X-Ray 11/07/24 22:08 Exam(s): XR CXR 1 VIEW EXAM: XR Chest, 1 View CLINICAL HISTORY: Reason for exam: neuro deficit, acute stroke suspected. TECHNIQUE: Frontal view of the chest. COMPARISON: No relevant prior studies available. FINDINGS: Lungs: Unremarkable. No consolidation. Pleural space: Unremarkable. No pleural effusion or pneumothorax. Heart: Unremarkable. No cardiomegaly or pulmonary vascular congestion. Bones/joints: No acute fracture. No dislocation. IMPRESSION: No evidence of acute cardiopulmonary disease. Electronically signed by: Kevyn Reyes M.D. 11/08/24 00:[address] 11/07/24 22:08 CR Exam(s): CT HEAD Without Contrast EXAM: CT Head Without Intravenous Contrast CLINICAL HISTORY: Reason for exam: neuro deficit, acute stroke suspected. TECHNIQUE: Axial computed tomography images of the head/brain without intravenous contrast. CTDI is 36.18 mGy and DLP is 624.41 mGy-cm. Automated exposure control was utilized for the study. A dose lowering technique was utilized adhering to the principles of ALARA. COMPARISON: No relevant prior studies available. FINDINGS: Brain: Mild periventricular and deep and better low densities consistent with chronic small ulcer disease and/or senescent changes. The brain is otherwise unremarkable. No acute large vessel infarct or intracranial hemorrhage is seen. Ventricles: Unremarkable. No ventriculomegaly. Bones/joints: Unremarkable. No acute fracture. Soft tissues: Unremarkable. Sinuses: Unremarkable as visualized. No acute sinusitis. Mastoid air cells: Unremarkable as visualized. No mastoid effusion. IMPRESSION: Mild periventricular and deep and better low densities consistent with chronic small ulcer disease and/or senescent changes. The brain is otherwise unremarkable. No acute large vessel infarct or intracranial hemorrhage is seen. Communications: Call Doctor Stroke Electronically signed by: Dain Elizabeth MD 11/07/24 23:51 PM Head CTA 11/07/24 22:08 CR Exam(s): CTA HEAD With Contrast IV Amt: 119ml optiray 320 EXAM: CT Angiography Head With Intravenous Contrast CLINICAL HISTORY: Reason for exam: neuro deficit, acute stroke suspected. TECHNIQUE: Axial computed tomographic angiography images of the head with intravenous contrast. CTDI is 20.76 mGy and DLP is 10.38 mGy-cm. Automated exposure control was utilized for the study. A dose lowering technique was utilized adhering to the principles of ALARA. MIP reconstructed images were created and reviewed. CONTRAST: Patient received 119ml optiray 320 of IV contrast COMPARISON: No relevant prior studies available. FINDINGS: Right internal carotid artery: Mild calcified plaque in the distal right internal carotid artery causing 25% stenosis. No aneurysm. Right anterior cerebral artery: The right A1 segment is absent. This is a normal anatomic variant. Right middle cerebral artery: Unremarkable. No occlusion or significant stenosis. No aneurysm. Right posterior cerebral artery: Moderate to severe focal stenosis of the proximal right posterior cerebral artery. No thrombus is seen. No aneurysm. Right vertebral artery: Unremarkable as visualized. Left internal carotid artery: Mild calcified plaque in the distal left internal carotid artery causing 20% stenosis. No aneurysm. Left anterior cerebral artery: Unremarkable. No occlusion or significant stenosis. No aneurysm. Left middle cerebral artery: Unremarkable. No occlusion or significant stenosis. No aneurysm. Left posterior cerebral artery: Unremarkable. No occlusion or significant stenosis. No aneurysm. Left vertebral artery: Unremarkable as visualized. Basilar artery: Unremarkable. No occlusion or significant stenosis. No aneurysm. 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 No thrombus is seen. Mild calcified plaque causing 20-25% stenosis of the proximal internal carotid arteries bilaterally. Communications: Call Doctor Stroke Electronically signed by: Dain Elizabeth MD 11/07/24 23:54 PM Neck CTA 11/07/24 22:08 CR Exam(s): CTA NECK With Contrast IV Amt: 119ml optiray 320 EXAM: CT Angiography Neck With Intravenous Contrast CLINICAL HISTORY: Reason for exam: neuro deficit, acute stroke suspected. TECHNIQUE: Routine carotid CT angiography protocol was performed with intravenous contrast. NASCET criteria using the distal ICAs for comparison were used for evaluation of stenoses. CTDI is 13.45 mGy and DLP is 569.02 mGy-cm. Automated exposure control was utilized for the study. A dose lowering technique was utilized adhering to the principles of ALARA. MIP reconstructed images were created and reviewed. CONTRAST: Patient received 119ml optiray 320 of IV contrast COMPARISON: None. FINDINGS: VASCULATURE: Right common carotid artery: Calcified plaque causing 20% stenosis of the distal right common carotid artery. No dissection. Right internal carotid artery: Unremarkable. Extracranial segment is patent with no occlusion or significant stenosis. No dissection. Right external carotid artery: Unremarkable. No occlusion. Right vertebral artery: Unremarkable. No occlusion or significant stenosis. No dissection. Left common carotid artery: Unremarkable. No occlusion or significant stenosis. No dissection. Left internal carotid artery: Unremarkable. Extracranial segment is patent with no occlusion or significant stenosis. No dissection. Left external carotid artery: Unremarkable. No occlusion. Left vertebral artery: Unremarkable. No occlusion or significant stenosis. No dissection. Aorta: Small amount of atherosclerotic plaque in the aorta without aneurysm or dissection. NECK: Bones/joints: Mild degenerative changes throughout the cervical spine. 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 No fracture or subluxation. Soft tissues: Unremarkable. Lung apices: Clear. CAROTID STENOSIS REFERENCE USING NASCET CRITERIA: % ICA stenosis = (1 - narrowest ICA diameter/diameter of distal cervical ICA) x 100. Mild - <50% stenosis. Moderate - 50-69% stenosis. Severe - 70-94% stenosis. Near occlusion - 95-99% stenosis. Occluded - 100% stenosis. IMPRESSION: No acute findings in the arteries of the neck. Communications: Call Doctor Stroke Electronically signed by: Dain Elizabeth MD 11/08/24 00:00 AM Brain MRI 11/08/24 02:58 MR brain wo/w con CLINICAL HISTORY: right sided numbness TECHNIQUE: Multiplanar and multisequence MR images of the brain were obtained prior to and following administration of gadolinium contrast. Comparison: None available at the time of this dictation. FINDINGS: Restricted diffusion is noted in the left thalamus with associated edema. Hypodensity previously noted in the left lenticular nucleus is without restricted diffusion. Foci of T2 and FLAIR hyperintensity are noted in the paraventricular areas consistent with chronic small vessel ischemic disease. Ex vacuo ventriculomegaly and sulcal enlargement is noted compatible with diffuse volume loss. No mass or abnormal enhancement is seen. There is no mass effect or midline shift. There is no evidence of acute intraparenchymal hemorrhage. No extra axial fluid collections are seen. The corpus callosum, pituitary gland, and cerebellar tonsils appear grossly unremarkable. Flow voids of the major intracranial arterial vessels are identified. The imaged portions of the paranasal sinuses, mastoid air cells, and orbits are unremarkable. IMPRESSION: Acute left thalamic stroke is seen. Previously noted lentiform nucleus hypodensity is likely chronic. ACT 112: Negative or not required by law. Electronically signed by: Lucas Gurrola M.D. 11/08/2024 11:46 AM Medications Administered Home Medications Medication Instructions Recorded Confirmed Last Taken No Known Home Medications 11/08/24 11/08/24 Unknown Active Medications Generic Name Dose Route Start Last Admin Trade Name Freq PRN Reason Stop Dose Admin Aspirin 81 mg 11/08/24 09:00 11/08/24 08:18 Aspirin 81 Mg Ectab PO 12/08/24 08:59 81 mg DAILY AMANDA Administration Clopidogrel Bisulfate 75 mg 11/08/24 09:00 11/08/24 08:18 Clopidogrel Bisulfate 75 Mg Tab PO 12/08/24 08:59 75 mg QAM AMANDA Administration Lisinopril 20 mg 11/08/24 10:15 11/08/24 10:37 Lisinopril 20 Mg Tab PO 12/08/24 10:14 20 mg QAM AMANDA Administration
[2024-11-09 05:57] LABS: Basophils # (auto) 0.02 K/uL (0.00-0.20); Basophils % (auto) 0.3 %; Eosinophils # (auto) 0.14 K/uL (0.00-0.50); Eosinophils % (auto) 1.9 %; Hematocrit (blood only) 43.5 % (42.0-52.0); Hemoglobin 14.2 g/dl (14.0-18.0); Immature Granulocytes # (auto) 0.02 K/uL (0.01-0.20); Immature Granulocytes % (auto) 0.3 %; Lymphocytes # (auto) 2.19 K/uL (1.20-3.40); Lymphocytes % (auto) 29.4 %; Mean Corpuscular Hemoglobin 28.2 pg (25.0-34.0); Mean Corpuscular Hgb Conc 32.6 g/dL (32.0-36.0); Mean Corpuscular Volume 86.3 fL (80.0-100.0); Mean Platelet Volume 9.1 fL (9.4-12.4); Monocytes # (auto) 0.68 K/uL (0.11-0.59); Monocytes % (auto) 9.1 %; Platelet Count 299 K/uL (130-400); RDW Coefficient of Variation 12.9 % (11.5-14.5); RDW Standard Deviation 40.4 fL (36.4-46.3); Red Blood Count 5.04 M/uL (4.70-6.10); White Blood Count 7.45 K/ul (4.8-10.8)
[2024-11-09 06:23] LABS: BUN Creatinine Ratio 11.9 (10-20); Creatinine Clr Calc Pharmacy 83.6 ml/min; Potassium 3.5 mmol/L (3.5-5.1)
[2024-11-09 06:36] LABS: Thyroid Stimulating Hormone 2.468 uIu/ml (0.300-4.500)
[2024-11-09] MEDS: EMPAGLIFLOZIN 10 MG TAB PO SCH (08:34)
[2024-11-09] MEDS: ATORVASTATIN 40 MG TAB PO SCH (08:34)
--- NOTE | 2024-11-09 11:14 | Hospitalist Progress Note ---
Date of Service November 09, 2024 Assessment & Plan (1) Acute cerebrovascular accident (CVA) due to ischemia: Plan: Left thalamic (2) Hypertension, uncontrolled: (3) Dyslipidemia, goal LDL below 100: (4) Prediabetes: (5) Obesity (BMI 30.0-34.9): Plan Patient with right-sided symptoms due to left thalamic cerebral infarction most likely ischemic due to uncontrolled hypertension Blood pressure slightly improved with the initiation of lisinopril, continue to monitor response with additional dosing Continue therapies Case management to pursue rehab options Continue dual antiplatelet therapy, high-dose statin and Jardiance Admission and Anticipated Discharge Date Admission Date: November 08, 2024 Subjective Patient extremely anxious about getting moving forward with his therapies and wants to go to rehab. Symptoms overall not a significant change. Physical Exam Physical Exam: Constitutional: Alert, nontoxic HEENT: Mucous membranes moist. Lungs: Clear to auscultation, decreased, no wheezes rales or rhonchi CV: S1-S2, regular Abdomen: Soft, nontender, nondistended Extremities: No significant edema Neuro: Right-sided paresthesias and ataxia Psych: Cooperative, anxious Results & Data Results & Data Vital Signs (Past 12 Hours) Vital Signs Temp Pulse Pulse Resp BP Pulse Ox O2 Del Method 11/09/24 07:28 36.6 C 71 18 147/95 H 95 Room Air 11/09/24 07:08 60 11/09/24 03:07 36.5 C 75 18 145/82 H 95 Room Air 11/08/24 23:11 36.5 C 84 18 150/89 H 94 Room Air Diagnostic Findings Reviewed imaging, laboratory and diagnostic studies. Pertinent findings as below. CBC, BMP stable Creatinine 1.26 TSH 2.4 Treponema negative
--- NOTE | 2024-11-09 22:09 | Electrocardiogram Report ---
Test Reason : Blood Pressure : */* mmHG Vent. Rate : 86 BPM Atrial Rate : 86 BPM P-R Int : 168 ms QRS Dur : 80 ms QT Int : 364 ms P-R-T Axes : 56 20 27 degrees QTcB Int : 435 ms Normal sinus rhythm Possible Left atrial enlargement Cannot rule out Anterior infarct , age undetermined Abnormal ECG When compared with ECG of 08-May-2023 06:09, T wave amplitude has decreased in Anterior leads Confirmed by Darryn Renteria ([id number]) on 11/09/2024 10:09:36 PM Referred By: REFERRED SELF Confirmed By: Darryn Renteria
--- NOTE | 2024-11-10 03:09 | Ultrasound Report ---
EXAM: US venous doppler UE RT CLINICAL HISTORY: Swelling RUE. TECHNIQUE: Ultrasound examination of right upper extremity veins was performed in real time and duplex. One or more of the following were performed- spectral analysis, resistive index, waveform analysis, and pulsed Doppler. COMPARISON: None. FINDINGS: Normal phasic, non-pulsatile, and spontaneous flow is noted in the right Internal jugular, subclavian, axillary, brachial, basilic, cephalic, radial, and ulnar veins. Visualized veins of the right upper extremity demonstrate normal compressibility. No sonographic evidence of acute deep vein thrombosis (DVT) is detected in the visualized veins of the upper extremity. Compression and Augmentation: All evaluated veins compress fully with applied transducer pressure. Augmentation of venous flow is noted with distal compression. Additional Findings: No evidence of intraluminal thrombus. IMPRESSION: No sonographic evidence of acute DVT detected at the time of examination. Disclaimer: DVT could be missed early in the disease when clot burden is minimal. For patients with moderate and high pretest probability of DVT and negative ultrasound, the [employer] clinical guidelines recommend testing with a D-dimer assay or repeat ultrasound in 5-7 days. If symptoms worsen, the Society of radiologists in ultrasound recommends repeating ultrasound even earlier. Electronically signed by Jack Carey 11-10-2024 03:04 AM
[2024-11-10 08:30] VITALS: RESP 20; O2SAT 95
[2024-11-10] MEDS: lisinopril 10 MG TAB PO SCH (10:31)
--- NOTE | 2024-11-10 10:46 | Pharmacy Report ---
- Date of Service November 10, 2024 - Pharmacy CVA/TIA Medication Review Medications to Prevent Stroke handout has been added to the patients discharge packet. Antiplatelet(s) * aspirin 81 mg daily * plavix 75 mg daily Cholesterol * High intensity statin: atorvastatin 80 mg daily DVT Prophylaxis * SCD knee Therapeutic Anticoagulation * No history of Afib/Aflutter noted * Ziopatch at discharge Diabetes * Patient does have pre-diabetes, A1c 5.9% * Patient is ordered empagliflozin
[2024-11-10] MEDS ORDERED: STROKE PATIENT DISCHARGE STA (11:55)
--- NOTE | 2024-11-10 11:57 | Discharge Summary ---
Discharge Summary Date of Service November 10, 2024 Principal Dx & Hospital Course #1 = Principal Diagnosis (1) Acute cerebrovascular accident (CVA) due to ischemia: Left thalamic (2) Hypertension, uncontrolled: (3) Dyslipidemia, goal LDL below 100: (4) Prediabetes: (5) Obesity (BMI 30.0-34.9): Plan Patient presents to the emergency room With complaints of right-sided body numbness and some dizziness. In the emergency room initial stroke evaluation was unremarkable, no evidence of large vessel occlusion. He was not a candidate for tPA. Patient was cared for in the hospital. He was placed in a monitored setting. There was no arrhythmias noted on telemetry monitoring during his hospital stay. Patient continue with right sided paresthesias and some ataxia. Echocardiogram performed and showed no significant wall motion abnormalities, normal ejection fraction. MRI of the brain was performed that did show acute stroke in the left thalamic region. Neurology consultation was obtained. Re commended dual antiplatelet therapy, high-dose statin and blood pressure management. Patient had known hypertension and prediabetes, however he has not had any follow-up or taking any medications since his last hospitalization approximately 1 year ago. After some initial permissive hypertension in the setting of stroke he was started on lisinopril. He responded well to this and his blood pressures are starting to improve. Started on aspirin and Plavix. And high dose statin. Jardiance was also added to his medical regimen for stroke reduction and treatment of prediabetes. He received dietary education from the dietitian. He was seen by physical therapy and Occupational Therapy. They felt he would benefit from acute rehab. Case management was involved in his care. I was evaluated by [facility]. Insurance authorization was obtained. Patient was interested in going to acute rehab. He will be j discharged to [facility] to continue his rehabilitation. Notes For Next Care Provider Continue to monitor blood pressure adjust dosages or add medications as needed for optimal control Consider outpatient ZIO monitor to rule out an occult arrhythmia Consider outpatient sleep study after discharge from rehab Will need ongoing monitoring of his prediabetes Dual antiplatelet therapy for minimum of 3 weeks then can consider single agent aspirin therapy Medication Changes From Visit Lisinopril, Lipitor, Plavix, aspirin, Jardiance all new medications Admission HPI Per Admitting Provider 54-year-old male with past medical history significant for prediabetes, dyslipidemia, hypertension, obesity, currently not taking any medications presents with right-sided numbness. Around 6 PM he felt dizziness. After he ate his dinner the dizziness seem to be improved but later around 8:30 and 9 PM he noticed his whole right side from head to toe was numb. Patient states he could not feel objects in his hand. He feels tight in his right arm region. When he was coming to the hospital was somewhat off balance and shuffling gait but in the ED his balance is improved. Currently dizziness improved. He says the whole right body numbness is almost same probably slightly improved. Speech is okay. No difficulty swallowing. No headaches. No double vision or blurred vision. No cough. No recent fevers. No runny nose or sore throat. Denies chest pain or shortness of breath. No nausea or abdominal pain. Normal bowel and bladder movements. His blood pressure was elevated in the ER. He was in the hospital in April 2023 with rectal pain and blood per rectum likely from anal fissure. At that time he had a stress echocardiogram for elevated troponin which was mostly negative study . At that time cardiology recommended lifestyle modification ,moderate intensity statin therapy and aspirin daily. But patient is not taking those medications. Patient not checking his blood pressures. But lately sometimes he was feeling jittery and attributed it to anxiety and stress. Past medical history. As mentioned above Past surgical history. Colonoscopy. Right ACL reconstruction. Right knee meniscectomy. Vasectomy. Social history. . No smoking. No alcohol use. No drug use. Family history. Father had heart disorder. Mother had blood cancer.. Brother had thyroid issue. Admission Exam Per Admitting Provider See H&P Discharge Exam Constitutional: Alert HEENT: Mucous membranes moist. Lungs: Clear to auscultation, decreased, no wheezes rales or rhonchi CV: S1-S2, regular Abdomen: Soft, nontender, nondistended Extremities: No significant edema Neuro: Right-sided paresthesias from head to toe, mild ataxia of both upper and lower extremities, improved from admission NIHSS=2 Psych: Cooperative, normal mood Updated Medication List Medication Instructions Recorded Confirmed Type acetaminophen 325 mg tablet 650 mg (2 x 325 mg) PO Q4H PRN 11/10/24 Rx fever or pain #90 tabs aspirin 81 mg tablet,delayed 81 mg PO DAILY #30 tabs 11/10/24 Rx release atorvastatin 40 mg tablet 80 mg (2 x 40 mg) PO QAM #30 tabs 11/10/24 Rx clopidogrel 75 mg tablet 75 mg PO QAM #30 tabs 11/10/24 Rx empagliflozin 10 mg tablet 10 mg PO DAILY #30 tabs 11/10/24 Rx (Jardiance) lisinopril 10 mg tablet 30 mg (3 x 10 mg) PO QAM #90 tabs 11/10/24 Rx Hospital Stay Data Consultations 11/08/24 00:37 ED Decision to Admit Stat 11/08/24 08:00 Consult Neurology Routine Diagnostic Imagining Performed 11/07/24 22:08 CT angio head w con Stat CT angio neck with con Stat CT head/brain wo con Stat 11/08/24 02:58 MR brain wo/w con Urgent 11/10/24 01:11 US venous doppler UE RT Stat Reviewed imaging, laboratory and diagnostic studies. Pertinent findings as below. Echocardiogram shows ejection fraction 55 to 60% with mild left ventricular hypertrophy, no other significant abnormalities. I refer you to the full report for details Personally reviewed EKG, sinus rhythm no acute ST-T wave changes MRI of the brain showed acute left thalamic stroke CTA head and neck showed no large vessel occlusion CBC within normal ranges Electrolytes within normal ranges Creatinine 1.26 Hemoglobin A1c 5.9% Triglycerides 75 Cholesterol 239 LDL 183 HDL 41 TSH 2.4 Treponema negative Homocystine pending Pending Results Patient Have Any Pending Studies at Discharge: Yes Discharge Instructions Given to Patient (Per Discharging Provider) Continue rehab at [facility] You will need to continue to follow blood pressures with your PCP after discharge from rehab Continue to monitor your prediabetes to your PCP After discharge from rehab, consider discussing ZIO monitor with your PCP Total Time Total Time Spent Total Time Spent (In Minutes): 41
[2024-11-10 11:58] VITALS: BP 136/92; TEMP 98.1
[2024-11-10 15:23] VITALS: PULSE 117
--- NOTE | 2024-11-10 21:31 | Electrocardiogram Report ---
Test Reason : Blood Pressure : */* mmHG Vent. Rate : 68 BPM Atrial Rate : 68 BPM P-R Int : 168 ms QRS Dur : 92 ms QT Int : 412 ms P-R-T Axes : 68 48 31 degrees QTcB Int : 438 ms Normal sinus rhythm Normal ECG When compared with ECG of 07-Nov-2024 21:26, T wave amplitude has increased in Anterior leads Confirmed by Darryn Renteria ([id number]) on 11/10/2024 9:30:45 PM Referred By: REFERRED SELF Confirmed By: Darryn Renteria
== END 2024-11-10 16:05 | DRG 66 ==
LOC: ED 21:12 → 2S 11-08 01:50 → 2N 11-09 14:41